=== PATIENT | female | born 1940 | race Caucasian/White ===

== ENCOUNTER 2020-09-21 13:26 | Outpatient (CLI) | payer BC, SELFPAY ==
--- NOTE | ~2020-09-21 | MM_ITS ---
EXAMINATION: MM screening oren BI w sage HISTORY: Screening mammogram TECHNIQUE: Craniocaudal and mediolateral oblique 3-D tomosynthesis images were obtained and synthetic 2-D images were generated. CAD analysis was submitted and interpreted. COMPARISON: 09/15/2019 bilateral digital screening mammogram 05/06/2017, 03/11/2016 bilateral diagnostic digital mammogram examinations BREAST PARENCHYMAL COMPOSITION: The breasts are heterogeneously dense, which may obscure small masses . FINDINGS: Multiple bilateral benign-appearing calcifications are noted. Surgical clips are noted on the left; history of prior bilateral partial mastectomy for breast cancer . There is no evidence of suspicious mass, calcification, or architectural distortion to suggest malign tri in either breast. There has been no suspicious interval change. IMPRESSION: 1. No mammographic evidence of malignancy. 2. Recommend routine screening mammography in one year. BI-RADS Category 2: Benign finding(s). Reviewed, dictated and finalized at location A. MUNITION OFFICER
== END 2020-09-21 13:27 | disposition home or self-care (01) ==
PROVIDERS: PCP Family Medicine; Visit Provider Family Medicine
DX: Z12.31 Encounter for screening mammogram for malignant neoplasm of breast (principal)
CPT/HCPCS: 77063; 77067

== ENCOUNTER → 2021-02-26 15:40 | Outpatient (CLI) | payer BC, SELFPAY ==
--- NOTE | ~2021-02-26 | XR_ITS ---
EXAMINATION: XR chest 2V DATE: 02/26/2021 15:50 INDICATION: Shortness of breath. TECHNIQUE: Frontal and lateral views of the chest were obtained. COMPARISON: Chest 2 views 11/18/2017, chest CT 03/16/2010 FINDINGS: Calcified pulmonary nodules and calcified hilar and mediastinal lymph nodes are consistent with old granulomatous disease. No pleural effusion or pneumothorax. The heart size is normal. Surgic al clips overlie right chest. IMPRESSION: 1. No acute cardiopulmonary disease. Reviewed, dictated and finalized at location B.
== END ==
PROVIDERS: PCP Physician Assistant; Visit Provider Physician Assistant
DX: R06.02 Shortness of breath (principal)
CPT/HCPCS: 71046

== ENCOUNTER → 2021-03-20 03:03 | Outpatient (CLI) | payer BC, SELFPAY ==
[2021-03-20 18:14] LABS: SARS-CoV-2 RNA PCR Negative
== END ==
PROVIDERS: PCP Family Medicine; Visit Provider Specialist
DX: Z01.812 Encounter for preprocedural laboratory examination (principal); Z20.822 Contact with and (suspected) exposure to COVID-19
CPT/HCPCS: C9803; U0003; U0005

== ENCOUNTER 2021-03-23 00:46 | Day surgery (SDC) | payer BC, SELFPAY ==
[2021-03-22 09:50] VITALS: BMI 22.1
[2021-03-23] VITALS (16 sets, daily range): BP systolic 118–142; BP diastolic 51–65; PULSE 70–77; RESP 16–20; TEMP 36.2–36.7; O2SAT 94–100; BMI 22.4
[2021-03-23 08:44] LABS: Basophils Absolute Auto 0.1 K/mm3 (0.0-0.1); Basophils Percent Auto 0.7 % (0.2-1.2); Eosinophils Absolute Auto 0.2 K/mm3 (0-0.3); Eosinophils Percent Auto 2.2 % (0-4.4); Hemoglobin 12.9 g/dL (12.0-15.0); Immature Granulocyte Absolute 0.02 K/mm3 (0.00-0.031); Immature Granulocyte Percent A 0.3 % (0-0.5); Lymphocytes Absolute Auto 2.99 K/mm3 (0.9-3.2); Lymphocytes Percent Auto 40.4 % (18.3-44.2); Mean Corpuscular HGB Conc 31.5 g/dl (32-36); Mean Corpuscular Hemoglobin 28.5 pg (26-34); Mean Corpuscular Volume 90.7 fl (80-100); Mean Platelet Volume 8.7 fl (7.4-10.4); Monocytes Absolute Auto 0.7 K/mm3 (0.1-0.6); Monocytes Percent Auto 9.2 % (2.6-8.5); Neutrophils Absolute Auto 3.5 K/mm3 (1.3-6.7); Neutrophils Percent Auto 47.2 % (45.5-73.1); Platelet Count Result 513 k/mm3 (150-375); Red Blood Count 4.52 M/mm3 (4.2-5.4); Red Cell Distribution Width 15.7 % (11.5-14.5); White Blood Count 7.4 K/mm3 (4.5-10.0)
[2021-03-23] MEDS: SODIUM CHLORIDE 0.9% IV 500 ML 100 ML IV CONT (08:45)
[2021-03-23 08:54] LABS: Anion Gap 11 mmol/L (8-16); Blood Urea Nitrogen 52 mg/dL (7-17); Carbon Dioxide 29 mmol/L (22-30); Chloride 104 mmol/L (98-107); Estimated CRCL calculation 23 ml/min; Estimated Glomerular Filt Rate 36; Glucose 113 mg/dL (65-105); Potassium 3.6 mmol/L (3.4-5.0); Sodium 144 mmol/L (137-145)
--- NOTE | 2021-03-23 09:44 | WPDMODSED ---
Moderate Sedation Note-Pt Data Patient Data Diagnosis: Exertional dyspnea abnormal stress test Present Complaint: this is an 80-year-old woman previously not known to have coronary disease who has been experiencing exertional dyspnea for 6-9 months. a nuclear stress test as an outpatient demonstrated fixed apical defect raising the possibility of coronary disease. Because of this and her dyspnea right and left heart catheterization has been recommended. Procedure to be performed/Plan: Right and left heart catheterization Allergies Allergy/AdvReac Type Severity Reaction Status Date / Time chlorpheniramine Allergy Severe Hives Verified 03/22/21 10:09 [From Aller-Chlor Decongestant] Home Medications Medication Instructions Recorded Confirmed Type aspirin 81 mg tablet,delayed 81 mg PO DAILY 09/11/20 03/23/21 History release cholecalciferol (vitamin D3) 25 25 mcg PO DAILY 09/11/20 03/23/21 History mcg (1,000 unit) tablet tamoxifen 20 mg tablet 20 mg PO QPM tablet 09/11/20 03/23/21 History bumetanide 1 mg tablet See Rx Instructions .ROUTE 10/16/20 03/23/21 Rx .COMPLEX #90 tablet celecoxib 200 mg capsule 200 mg PO QAM #90 cap 10/16/20 03/23/21 Rx atorvastatin 10 mg tablet See Rx Instructions .ROUTE 10/23/20 03/23/21 Rx .COMPLEX #90 tablet venlafaxine 75 mg capsule,extended See Rx Instructions .ROUTE 10/30/20 03/23/21 Rx release 24 hr .COMPLEX #270 cap levothyroxine 75 mcg tablet 75 mcg PO QAM #90 tablet 11/10/20 03/23/21 Rx amlodipine 10 mg tablet 10 mg PO QPM #90 tablet 11/20/20 03/23/21 Rx fenofibrate 160 mg tablet See Rx Instructions .ROUTE 11/28/20 03/23/21 Rx .COMPLEX #90 tablet pantoprazole 20 mg tablet,delayed See Rx Instructions .ROUTE 01/01/21 03/23/21 Rx release .COMPLEX #90 tablet triamterene 37.5 See Rx Instructions .ROUTE 01/09/21 03/23/21 Rx mg-hydrochlorothiazide 25 mg tablet .COMPLEX #90 tablet fluticasone fur. 100 mcg-umeclid 1 inh INHALATION Q24H #60 ea 03/01/21 03/23/21 Rx 62.5 mcg-vilant 25 mcg inhalat.powder fluticasone propionate 50 See Rx Instructions .ROUTE 03/08/21 03/23/21 Rx mcg/actuation nasal .COMPLEX #32 g spray,suspension Current Medications: Active Medications Sodium Chloride (Normal Saline Iv) 500 mls @ 100 mls/hr IV CONT .Q5H NATHAN Sedation/Anesthesia: No previous sedation/anesthesia problems (including family history). [facility] Past Medical History Medical History Essential (primary) hypertension Gastro-esophageal reflux disease without esophagitis Major depressive disorder, recurrent, mild Type 2 diabetes mellitus with hyperglycemia Surgical History Surgical History H/O bladder repair surgery (~1982) H/O lumpectomy (~2013) H/O: hysterectomy (~1982) History of appendectomy (~1954) History of knee replacement (~2006) History of knee replacement (~2002) History of lumpectomy (~2010) Family History Family History Mother Family history of lung cancer Hypertension Family history of kidney disease Family history of throat cancer Father Family history of lung cancer Family history of coronary artery disease Social History Social History Smoking status: Former smoker Tobacco type: cigarettes Smoking end date: 10/20/84 Alcohol intake: never Living arrangements: alone Gender identity (if verbalized by the patient): Female Sexual Orientation (if Verbalized by the Patient): Straight or Heterosexual Spiritual care concerns: No Mod Sed Physical Exam Physical Exam Pre Procedural Exam: Normal: Appearance, Neck, Throat, Airway, Lungs, Heart Size, Heart Rate, Heart Rhythm, Neuro Exam and Extremities Hours since solid foods: 12 Hours since liquid intake: 12 Internal Medicine - PN: Obj Da Vital
--- NOTE | 2021-03-23 10:43 | WPDCARDPROC ---
Cardiac Cath Procedure Note Date of procedure:: 03/23/21 Performing physician:: Charly Holley MD Indication:: Exertional dyspnea, fixed apical defect on nuclear stress testing Brief clinical history:: this is an 80-year-old woman reporting symptoms of exertional shortness of breath. She is not known to have coronary artery disease previous to this. a Lexiscan nuclear stress test showed a fixed apical defect prompting recommendation for catheterization. Procedure Procedure performed:: Right and left heart catheterization Sedation/Medication given:: fentanyl 25 mg Versed 2 mg case start time 10:04 a.m. case end time 10:35 a.m. sedation provided by Val Gil RN, trained observer Access site:: right femoral artery, right femoral vein Estimated blood loss:: 10-15 cc Procedure note:: patient was brought to the cardiac catheterization lab in the postabsorptive state for the right femoral triangle was prepared and draped in the usual sterile fashion. Anesthesia was provided with 1% lidocaine infiltrated locally. Using the modified Seldinger technique a 7 Macedonian sheath was placed into the femoral vein and a 5 Macedonian sheath into the femoral artery. Following this right heart cathetrization was performed using a balloon tip Tyronza-Kyler catheter demonstrating right-sided pressures, measuring thermodilution cardiac outputs and AV O2 difference. The Tyronza-Kyler catheter was then removed. I then used a 5 Macedonian angled pigtail catheter to measure left-sided hemodynamics and to inject left ventriculography in the PAGAN projection. The pigtail catheter was then withdrawn the left coronary artery was engaged and injected using a standard 5 Macedonian FL4 catheter the right coronary artery was engaged and injected using standard 5 Macedonian JR4 catheter. The cine angiograms were then reviewed the case terminated. An angiogram was done of the femoral artery through the sheath after which I elected to have the sheath removed with direct manual pressure. Procedure was well tolerated there were no apparent complications there was no groin hematoma upon leaving the labor relations consultant. Findings:: Hemodynamics: Right atrial pressure of 5 mm Hg, right ventricle 38 over 2 end-diastolic pressure 6, Pulmonary artery 42 over 17. Mean pulmonary wedge pressure is 8. The thermodilution cardiac output is 5 liters/minute giving an index of 3.1. The Monisha cardiac output is identical. left ventricle: The LV is normal in size there is hypo contractility in the apical segment of the LV. The remainder contracts very well the global ejection fraction I would visually estimated to be 55%. The left main coronary artery is moderate caliber and nicely patent. The left anterior descending is a medium caliber artery which terminates before the cardiac apex. It is free of disease. The diagonal branch is essentially this same size as the LAD itself. This moderate-sized diagonal branch has a modest stenosis in the proximal 3rd of its course of about 50%. The remainder of the diagonal looks normal. The circumflex is a medium caliber vessel giving rise to marginal branches and appears to be smooth and angiographically normal. The right coronary artery is moderate to large in caliber and dominant to the posterior circulation the RCA is smooth and angiographically normal in appearance. Conclusion:: 1. Angiographically mild single-vessel coronary disease with about 50-60% stenosis seen in the diagonal branch of the LAD. 2. Apical hypokinesia overall normal left ventricular ejection fraction 3. at this time medical therapy for this angiographically modest coronary disease will be recommended. 4. slightly elevated pulmonary artery systolic pressure with normal left ventricular filling pressure Charly Holley MD FACC
[2021-03-23] MEDS: SODIUM CHLORIDE 0.9% IV 1,000 ML 125 ML IV CONT (11:00)
--- NOTE | 2021-03-23 16:45 | SUR.PHASEII ---
REVIEWED ALL DISCHARGE INSTRUCTIONS W/ PT. QUESTIONS ANSWERED. VOICED UNDERSTANDING OF ALL. DISCHARGED HOME, OUT VIA WC TO FRIEND'S WAITING CAR, WITH ALL PERSONAL BELONGINGS AND DISCHARGE PACKET. STEADY GAIT. VOICES NO C/O. NO DISTRESS NOTED.
== END 2021-03-23 16:45 | disposition home or self-care (01) ==
PROVIDERS: PCP Family Medicine; Visit Provider Specialist
PROC: 4A023N8 Measurement of Cardiac Sampling and Pressure, Bilateral, Percutaneous Approach (ICD-10-PCS; CPT 93453; principal; 2021-03-23 10:00)
DX: I25.10 Atherosclerotic heart disease of native coronary artery without angina pectoris (principal); R94.39 Abnormal result of other cardiovascular function study; R06.09 Other forms of dyspnea; R07.9 Chest pain, unspecified; I10 Essential (primary) hypertension; E11.9 Type 2 diabetes mellitus without complications; E78.00 Pure hypercholesterolemia, unspecified; K21.9 Gastro-esophageal reflux disease without esophagitis; F33.0 Major depressive disorder, recurrent, mild; Z87.891 Personal history of nicotine dependence; Z79.82 Long term (current) use of aspirin; Z79.810 Long term (current) use of selective estrogen receptor modulators (SERMs); Z85.3 Personal history of malignant neoplasm of breast
CPT/HCPCS: 36415; 80048; 85025; 93460; C1887; C1894; J0461; J1644; J2250; J3010; J7040

== ENCOUNTER 2021-11-01 15:26 | Outpatient (CLI) | payer BC, SELFPAY ==
--- NOTE | ~2021-11-01 | MM_ITS ---
EXAMINATION: MM screening oren BI w sage HISTORY: Screening TECHNIQUE: Craniocaudal and mediolateral oblique 3-D tomosynthesis images were obtained and synthetic 2-D images were generated. CAD analysis was submitted and interpreted. COMPARISON: Comparison to multiple prior studies sequentially, with oldest reviewed study dated 08/20. BREAST PARENCHYMAL COMPOSITION: The breasts are heterogenously dense, which may obscure small masses FINDINGS: The left breast is stable without evidence for malignancy. There is suggestion of new archi tectural distortion in the upper central aspect of the right breast. IMPRESSION: 1. New focal architectural distortion of the right breast. 2. Additional mammographic views and possible breast ultrasound are recommended. BI-RADS Category 0: Incomplete: Needs additional imaging evaluation. Reviewed, dictated and finalized at location A. UND SALES MANAGER IMPRESSION: 1. New focal architectural distortion of the right breast. 2. Additional mammographic views and possible breast ultrasound are recommended . BI-RADS Category 0: Incomplete: Needs additional imaging evaluation.
== END 2021-11-01 15:27 | disposition home or self-care (01) ==
PROVIDERS: PCP Family Medicine; Visit Provider Family Medicine
DX: Z12.31 Encounter for screening mammogram for malignant neoplasm of breast (principal); R92.8 Other abnormal and inconclusive findings on diagnostic imaging of breast
CPT/HCPCS: 77063; 77067

== ENCOUNTER 2021-11-20 12:52 | Outpatient (CLI) | payer BC, SELFPAY ==
--- NOTE | ~2021-11-20 | MMUS_ITS ---
EXAMINATION: MM diagnostic oren RT w sage, US breast RT limited HISTORY: Follow-up right breast mass TECHNIQUE: Additional 3-D tomosynthesis images of the right breast were performed and synthetic 2-D i mages were generated. CAD analysis was submitted and interpreted. High resolution right breast ultras ound was performed. COMPARISON: Comparison to multiple prior studies sequentially, with oldest reviewed study dated 03/07. BREAST PARENCHYMAL COMPOSITION: Breast composed of scattered areas of fibroglandular density FINDINGS: MAMMOGRAPHIC FINDINGS: There is distortion of the right breast in the periareolar region, consistent with previous surgery. No new masses, calcifications or architectural distortion. There are benign calcifications. ULTRASOUND: Limited right breast ultrasound: At 9:00 in the subareolar location there is a 4 mm cyst. No suspicio us masses to suggest malignancy. IMPRESSION: 1. No evidence for malignancy in the right breast. Benign findings. 2. Routine yearly screening mammogram and regular clinical breast examination are recommended. BI-RADS Category 2: Benign finding(s). Reviewed, dictated and finalized at location A. ECTIONAL SUPERVISOR IMPRESSION: 1. No evidence for malignancy in the right breast. Benign findings. 2. Routine yearly screening mammogram and regular clinical breast examination a re recommended. BI-RADS Category 2: Benign finding(s).
== END 2021-11-20 12:53 | disposition home or self-care (01) ==
LOC: ANHIMG 12:53
PROVIDERS: PCP Family Medicine; Visit Provider Family Medicine
DX: R92.8 Other abnormal and inconclusive findings on diagnostic imaging of breast (principal)
CPT/HCPCS: 76642; 77061; 77065; G0279

== ENCOUNTER 2022-10-17 15:37 | Outpatient (CLI) | payer BC, SELFPAY ==
--- NOTE | ~2022-10-17 | XR_ITS ---
EXAMINATION: XR lumbar spine 2-3V DATE: 10/17/2022 16:05 INDICATION: Right leg pain. TECHNIQUE: 3 views of lumbar spine were obtained. COMPARISON: Lumbar spine radiographs 08/29/2009 FINDINGS: There is 32 degrees levoscoliosis of lumbar spine. There is 4 mm retrolisthesis of L2 on L3 . Vertebral body heights are normal. There is severely decreased disc height from L1-L2 through L3-L4 , mildly decreased disc height at L4-L5, and severely decreased disc height at L5-S1 with endplate re modeling. There is multilevel facet joint osteoarthritis. IMPRESSION: 1. Severe lumbar spondylosis. 2. Lumbar levoscoliosis. Reviewed, dictated and finalized at location A. ERMAN
--- NOTE | ~2022-10-17 | XR_ITS ---
EXAMINATION: XR hip RT min 3V w AP pelvis DATE: 10/17/2022 16:05 INDICATION: Right leg pain. TECHNIQUE: An anteroposterior view of the pelvis and 3 views of right hip were obtained. COMPARISON: Right hip radiographs 09/30/2013 FINDINGS: There is lumbar levoscoliosis and severe spondylosis. No fracture. There is moderate osteoa rthritis of the hips. IMPRESSION: 1. Moderate osteoarthritis of the hips. Reviewed, dictated and finalized at location A. OLL TAX SPECIALIST
== END 2022-10-17 15:38 | disposition home or self-care (01) ==
PROVIDERS: PCP Family Medicine; Visit Provider Physician Assistant
DX: M79.604 Pain in right leg (principal); M43.06 Spondylolysis, lumbar region; M41.86 Other forms of scoliosis, lumbar region; M16.0 Bilateral primary osteoarthritis of hip
CPT/HCPCS: 72100; 73502

== ENCOUNTER 2023-07-16 09:44 | Outpatient (CLI) | payer BC, SELFPAY ==
--- NOTE | ~2023-07-16 | MM_ITS ---
EXAMINATION: MM screening oren BI w sage HISTORY: Screening mammogram TECHNIQUE: Craniocaudal and mediolateral oblique 3-D tomosynthesis images were obtained and synthetic 2-D images were generated. CAD analysis was submitted and interpreted. COMPARISON: November 20, 2021 diagnostic right mammogram and limited right breast ultrasound BREAST PARENCHYMAL COMPOSITION: The breasts are heterogeneously dense, which may obscure small masses . FINDINGS: Stable postoperative changes of both breasts; history of bilateral breast malignancies and partial mastectomies.. Scattered bilateral benign calcifications. There is no evidence of suspicious mass, calcification, or architectural distortion to suggest malig sabrina in either breast. There has been no suspicious interval change. IMPRESSION: 1. Status post bilateral partial mastectomies for breast cancer. No mammographic evidence of malignan cy. 2. Recommend routine screening mammography in one year. BI-RADS Category 2: Benign finding(s). Reviewed, dictated and finalized at location A. IMPRESSION: 1. Status post bilateral partial mastectomies for breast cancer. No mammographi c evidence of malignancy. 2. Recommend routine screening mammography in one year. BI-RADS Category 2: Benign finding(s).
== END 2023-07-16 09:45 | disposition home or self-care (01) ==
LOC: ANHIMG 09:47
PROVIDERS: PCP Family Medicine; Visit Provider Family Medicine
DX: Z12.31 Encounter for screening mammogram for malignant neoplasm of breast (principal)
CPT/HCPCS: 77063; 77067

== ENCOUNTER 2023-08-24 10:56 | Emergency (ER) | payer BC, SELFPAY ==
--- NOTE | ~2023-08-24 | CT_ITS ---
EXAMINATION: CT brain wo con INDICATION: Head injury COMPARISON: 10/04/2010 TECHNIQUE: Standard unenhanced head CT. The dose-length product (DLP) was 529.67 mGy-cm. The mA was a djusted according to patient size. Iterative reconstruction technique was employed. FINDINGS: No acute intraparenchymal hemorrhage. No evidence of mass lesion. No evidence of acute infa rction. There is mild periventricular and subcortical hypodensity probably related to small vessel is chemic disease. There is mild prominence of the sulci and ventricles related to cerebral atrophy. Int racranial calcified cerebral atherosclerosis is noted. No extra-axial collections. No mass effect or midline shift. The orbits and soft tissues are unremarkable. There is mild mucosal thickening of the paranasal sinuses. IMPRESSION: 1. No acute intracranial abnormality. 2. Age related findings. Reviewed, dictated and finalized at location F. HER ADVISOR
--- NOTE | ~2023-08-24 | CT_ITS ---
EXAMINATION: CT facial bones wo con DATE: 08/24/2023 13:28 INDICATION: Head injury and facial pain TECHNIQUE: Computed tomography (CT) of the facial bones and maxillofacial region was performed withou t intravenous contrast. The dose-length product (DLP) was 238.00 mGy-cm. Automated exposure control a nd iterative reconstruction technique were employed. COMPARISON: None. FINDINGS: There is a nondisplaced fracture involving the anterior process of the maxilla. No addition al facial fracture is identified. The globes and orbits are normal. There is near complete opacificat ion of the left maxillary sinus. There is severe cervical spondylosis. IMPRESSION: 1. Acute anterior process fracture of the maxilla. Reviewed, dictated and finalized at location F. TRICAL PROSPECTING OPERATOR
--- NOTE | ~2023-08-24 | CT_ITS ---
EXAMINATION: CT cervical spine wo con DATE: 08/24/2023 12:11 INDICATION: Head injury TECHNIQUE: Computed tomography (CT) of the cervical spine was performed without intravenous contrast. The dose-length product (DLP) was 106.84 mGy-cm. Automated exposure control and iterative reconstruc tion technique were employed. COMPARISON: None FINDINGS: There are 2 mm anterolisthesis of C3 on C4 and C7 on T1. There is severe loss of interverte bral disc space height in the cervical and visualized upper thoracic spine. There is no fracture. The vertebral body heights are maintained. There is multilevel severe facet and uncovertebral joint oste oarthritis. There is inflammatory pannus surrounding the tip of the odontoid process. There is mild b ronchial wall thickening of the visualized lung apices IMPRESSION: 1. Severe cervical and upper thoracic spondylosis without acute findings. Reviewed, dictated and finalized at location F. E MILLER
[2023-08-24 11:19] VITALS: BP 142/84; PULSE 84; RESP 16; TEMP 36.4; O2SAT 96
[2023-08-24] MEDS: ACETAMINOPHEN 500 MG TABLET 1000 MG PO (13:15)
--- NOTE | 2023-08-24 13:20 | ED.GENADULT ---
HPI - General Adult General Chief complaint: Wound/Laceration Stated complaint: fall- injury to forehead Time Seen by Provider: 08/24/23 11:34 Source: patient Mode of arrival: ambulatory Limitations: no limitations History of Present Illness HPI narrative: Patient is an 83-year-old female who presents to the ED with report of a fall with head injury. Patient reports she was walking into [facility] today when she tripped over a curb on the sidewalk and fell forward. She did hit her head on the ground. Denied LOC. She sustained a laceration to her left eyebrow, which was bandaged by a nurse at [facility]. She also had an epistaxis after the fall which has since resolved. Patient complains of pain to her head and neck, denies extremity pain, chest pain, difficulty breathing, dizziness, lightheadedness, vision changes, nausea, vomiting. No prodromal symptoms prior to the fall. Patient is not on any blood thinners. Tetanus up-to-date. Related Data Home Medications Medication Instructions Recorded Confirmed aspirin 81 mg tablet,delayed 81 mg PO DAILY 09/11/20 05/13/23 release (Adult Low Dose Aspirin) cholecalciferol (vitamin D3) 25 25 mcg PO DAILY 09/11/20 05/13/23 mcg (1,000 unit) tablet multivitamin with iron (Daily 1 tablet PO DAILY 12/27/22 05/13/23 Multiple Vitamins with Iron tablet) vitamin B complex 1 cap PO DAILY 12/27/22 05/13/23 venlafaxine 75 mg capsule,extended 225 mg PO DAILY 02/13/23 05/13/23 release 24 hr Allergies Allergy/AdvReac Type Severity Reaction Status Date / Time chlorpheniramine Allergy Severe Hives Verified 08/24/23 11:21 [From Aller-Chlor Decongestant] Review of Systems Review of Systems: CONSTITUTIONAL: Denies fever, chills, or sweats. EYES: Denies visual changes. ENT: See HPI. CARDIOVASCULAR: Denies chest pain. RESPIRATORY: Denies dyspnea. GASTROINTESTINAL: Denies abdominal pain, nausea, vomiting. SKIN: See HPI. MUSCULOSKELETAL: See HPI. NEUROLOGIC: See HPI. All systems reviewed & are unremarkable except as noted in HPI and below PMFSH Past Medical History Medical History Back Pain Chest pain Chronic kidney disease, stage 3 (moderate) Chronic right hip pain Coronary artery disease Degenerative joint disease (DJD) of hip Depression Dizziness Essential (primary) hypertension Gastro-esophageal reflux disease without esophagitis Hypercalcemia Hypothyroidism, unspecified Leg pain, right Light headedness Lumbar spondylosis Major depressive disorder, recurrent, mild Malignant neoplasm of unspecified site of right female breast Mixed hyperlipidemia Obstructive sleep apnea Scoliosis Sinus infection Type 2 diabetes mellitus with hyperglycemia Unsteady gait Vertigo Surgical History Surgical History H/O bladder repair surgery (~1982) H/O lumpectomy (~2013) H/O: hysterectomy (~1982) History of appendectomy (~1954) History of cardiac cath (~03/2021) History of knee replacement (~2006) History of knee replacement (~2002) History of lumpectomy (~2010) Family History Family History Mother Family history of lung cancer Hypertension Family history of kidney disease Family history of throat cancer Father Family history of lung cancer Family history of coronary artery disease Social History Social History Smoking status: Former smoker Tobacco type: cigarettes Smoking end date: 10/20/84 Alcohol intake: never Lack of Transportation: No Lack of Food: Never True Current Housing: I Have Housing Concerned About Future Housing: No Difficulty Paying Gas/Electric Bills: No Currently Unemployed: No Education: High School Diploma/GED Difficulty w/ Childcare or Family Care: No Living arrangements: alone [place]
[2023-08-24 15:20] VITALS: BP 140/80; PULSE 80; RESP 16; O2SAT 98
== END 2023-08-24 15:21 | disposition home or self-care (01) ==
PROVIDERS: Emergency Provider Physician Assistant; PCP Family Medicine
DX: S02.401A Maxillary fracture, unspecified side, initial encounter for closed fracture (principal); S01.112A Laceration without foreign body of left eyelid and periocular area, initial encounter; I12.9 Hypertensive chronic kidney disease with stage 1 through stage 4 chronic kidney disease, or unspecified chronic kidney disease; E11.22 Type 2 diabetes mellitus with diabetic chronic kidney disease; N18.30 Chronic kidney disease, stage 3 unspecified; E03.9 Hypothyroidism, unspecified; E78.2 Mixed hyperlipidemia; Z87.891 Personal history of nicotine dependence; W01.0XXA Fall on same level from slipping, tripping and stumbling without subsequent striking against object, initial encounter; Y92.22 Religious institution as the place of occurrence of the external cause
CPT/HCPCS: 70450; 70486; 72125; 99284; A9270

== ENCOUNTER 2023-12-22 11:32 | Outpatient (CLI) | payer BC, SELFPAY ==
[2023-12-22 19:17] LABS: Alanine Aminotransferase 20 U/L (6-35); Albumin Level 3.9 g/dL (3.5-5.1); Alkaline Phosphatase 64 U/L (38-126); Anion Gap 9 mmol/L (8-16); Aspartate Amino Transferase 36 U/L (14-36); Bilirubin,Total 0.4 mg/dL (0.2-1.3); Blood Urea Nitrogen 27 mg/dL (7-17); Calcium 10.2 mg/dL (8.4-10.2); Carbon Dioxide 31 mmol/L (22-30); Chloride 100 mmol/L (98-107); Estimated Glomerular Filt Rate 53; Glucose 111 mg/dL (65-110); Potassium 2.9 mmol/L (3.4-5.0); Sodium 140 mmol/L (137-145)
[2023-12-22 19:31] LABS: Free T4 Free Thyroxine 1.35 ng/mL (0.78-2.19)
[2023-12-22 19:45] LABS: Total Triiodothyronine (T3) 0.85 NG/ML (0.97-1.69)
[2023-12-22 21:38] LABS: Hemoglobin A1C 6.3 % (<5.7)
== END 2023-12-22 11:33 | disposition home or self-care (01) ==
LOC: ANHGOSHLAB 11:34
PROVIDERS: PCP Family Medicine; Visit Provider Emergency Medicine
DX: E03.9 Hypothyroidism, unspecified (principal); E11.65 Type 2 diabetes mellitus with hyperglycemia; N18.30 Chronic kidney disease, stage 3 unspecified
CPT/HCPCS: 36415; 80053; 83036; 84439; 84443; 84480

== ENCOUNTER → 2023-12-22 11:42 | Outpatient (CLI) | payer BC, SELFPAY ==
--- NOTE | ~2023-12-22 | XR_ITS ---
EXAMINATION: XR shoulder RT min 2V DATE: 12/22/2023 12:01 INDICATION: Memory osteoarthritis at the right shoulder TECHNIQUE: AP internally and externally rotated, AP oblique externally rotated and transscapular Y vi ews of the right shoulder were obtained. COMPARISON: None FINDINGS: Normal alignment. No fracture.Severe osteoarthritis at the right glenohumeral joint. Mild osteoarthr itis at the acromioclavicular joint. There are several calcific density projecting over the soft tiss ues overlying the superolateral aspect of the humeral head suspicious for small amount of calcific te ndinitis. There is cystic change along the greater tuberosity which can be seen in setting of rotator cuff disease. There is a large portion of the lungs are clear. Surgical clips projecting over the ri ght axilla on the Grashey view. IMPRESSION: 1. 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 2. Suggestion of subtle right rotator cuff calcific tendinitis with cystic change at the greater tube rosity which can be seen with chronic rotator cuff disease. Reviewed, dictated and finalized at location A. ING PILOT IMPRESSION: 1. 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 2. Suggestion of subtle right rotator cuff calcific tendinitis with cystic moss ge at the greater tuberosity which can be seen with chronic rotator cuff diseas e.
== END ==
PROVIDERS: PCP Family Medicine; Visit Provider Emergency Medicine
DX: M19.011 Primary osteoarthritis, right shoulder (principal)
CPT/HCPCS: 73030

== ENCOUNTER 2024-01-12 13:28 | Outpatient (CLI) | payer BC, SELFPAY ==
[2024-01-12 18:16] LABS: Alanine Aminotransferase 22 U/L (6-35); Albumin Level 4.1 g/dL (3.5-5.1); Alkaline Phosphatase 63 U/L (38-126); Anion Gap 5 mmol/L (8-16); Aspartate Amino Transferase 41 U/L (14-36); Bilirubin,Total 0.5 mg/dL (0.2-1.3); Blood Urea Nitrogen 35 mg/dL (7-17); Calcium 10.7 mg/dL (8.4-10.2); Carbon Dioxide 33 mmol/L (22-30); Chloride 102 mmol/L (98-107); Estimated Glomerular Filt Rate 53; Glucose 111 mg/dL (65-110); Potassium 3.4 mmol/L (3.4-5.0); Sodium 140 mmol/L (137-145)
== END 2024-01-12 13:29 | disposition home or self-care (01) ==
LOC: ANHGOSHLAB 13:30
PROVIDERS: PCP Family Medicine; Visit Provider Family Medicine
DX: E03.9 Hypothyroidism, unspecified (principal); Z13.228 Encounter for screening for other metabolic disorders; E87.6 Hypokalemia
CPT/HCPCS: 36415; 80053; 84443

== ENCOUNTER 2024-01-27 11:00 | Outpatient (RCR) | payer BC, SELFPAY ==
--- NOTE | 2023-12-30 14:44 | OPREHPOC ---
Outpatient Therapy Plan of Care This is a Multidisciplinary Plan of Care that may contain components documented by all disciplines (PT, OT, and ST.) PT Problem 1 PT Problem #1 Knowledge Deficit PT Goal 1 Goal Pt to be IND with issued HEP. Target Visit 8 PT Problem 2 PT Problem #2 Pain PT Goal 1 Goal Pt to report back pain no greater than 3/10 in the last week. Target Visit 8 PT Goal 2 Goal Pt to report 75% improvement in overall symptoms. Target Visit 8 PT Problem 3 PT Problem #3 Impaired Sensation PT Goal 1 Goal Pt to decline radicular symptoms in the last week. Target Visit 8 PT Problem 4 PT Problem #4 Impaired Functional Mobil PT Goal 1 Goal Pt to report no more than 10% disability on the Oswestry. Target Visit 8
--- NOTE | 2023-12-30 14:44 | PTOPEVAL1 ---
Assessment and note entered by Shashi Camarillo, PT, DPT Evaluation Information Assessment Status Evaluation Diagnosis lumbar radiculopathy Subjective Information Pt reports chronic history of low back pain worsening in the last few months, she states it is now affecting that way she walks as she has pain going down the R leg. She states her pain radiated down the side of her thigh but never goes beyond the knees. Declines any spinal surgeries. Her pain is worse in the morning, but gets better throughout the day. States she would like to improve her walking. Reported Pain Level Pain Score 2: Self Report Assessment PT Clinical Summary Tessa presents to therapy today for her initial evaluation with a diagnosis of lumbar radiculopathy. She demonstrates decreased active lumbar motions limited by pain reports on the R side. There are palpable muscle spasms throughout the thoracic and lumbar paraspinals as well as tenderness to palpation in her vish piriformis L>R. She also demonstrates decreased hip and core strength. Skilled therapy services are indicated to improve mobility and stability deficits, to manage pain, and to improve functional mobility. Plan of Care Interventions Electrical Stimulation,Gait Training,Hot Pack/Cold Pack,Manual Therapy,Neuro Re-education,Patient/ Caregiver Educati,Therapeutic Activities, Therapeutic Exercise PT Services Indicated Yes Treatment Frequency and 1x/wk for 6 visits Duration These treatments will address the objective and functional deficits as defined above. The patient will be advanced safely and appropriately in order for the patient to progress towards his/her prior level of function. Additional exercises will be introduced and as well as a comprehensive home exercise program upon discharge, if needed, ?to ensure carryover of functional gains achieved in the clinic. This treatment plan has been reviewed and agreement upon by the patient.
--- NOTE | 2024-01-07 14:21 | PCPTNOTE ---
Patient no showed to appointment this date. Called and left voicemail.
--- NOTE | 2024-01-27 11:51 | PTOPDC ---
Assessment and note entered by Shashi Camarillo, PT, DPT Evaluation Information Assessment Status Discharge Diagnosis lumbar radiculopathy Subjective Information Pt states right now her back seems to be doing better. She states she knows she just has to keep at it. She feels like she is walking a little but better than when she started therapy. She continues to have high levels of pain in the morning, about 8/10, and down to a 2-3/10 at worst once she gets moving. Reported Pain Level Pain Score 0: Self Report Assessment PT Clinical Summary Tessa presents to therapy today for her progress report following 5 visits of skilled therapy to treat her diagnosis of lumbar radiculopathy. She demonstrates improved active lumbar ROM, improved hip strength, improved stability, and progressing body awareness. She reports good compliance with her HEP and good progress towards her goals. D/t her co-pay, pt would like to continue with her HEP IND since she is progressing well. Plan of Care PT Services Indicated No
== END 2024-01-27 14:25 | disposition home or self-care (01) ==
LOC: ANHGOSHPT 11:00
PROVIDERS: PCP Family Medicine; Visit Provider Emergency Medicine
DX: M19.011 Primary osteoarthritis, right shoulder (principal); M47.816 Spondylosis without myelopathy or radiculopathy, lumbar region
CPT/HCPCS: 97014; 97110; 97112; 97140; 97161; 97530; 99199; G0283

== ENCOUNTER 2024-07-23 10:56 | Outpatient (CLI) | payer BC, SELFPAY ==
--- NOTE | ~2024-07-23 | XR_ITS ---
Clinical Indication: Shortness of breath PA and lateral views of the chest: Comparison: 02/26/2021 Findings: The lungs are clear, without evidence of focal consolidation or pleural effusion. Cardiome diastinal silhouette is within normal limits. Bones and soft tissues are unremarkable. Impression: Clear lungs Reviewed, dictated and finalized at location . Impression: Clear lungs
== END 2024-07-23 10:57 | disposition home or self-care (01) ==
LOC: GOSHIMG 10:57
PROVIDERS: PCP Family Medicine; Visit Provider Family Medicine
DX: R06.02 Shortness of breath (principal)
CPT/HCPCS: 71046

== ENCOUNTER 2024-07-23 11:15 | Outpatient (CLI) | payer BC, SELFPAY ==
[2024-07-23 16:14] LABS: Basophils Absolute Auto 0.1 K/mm3 (0.0-0.1); Basophils Percent Auto 1.6 % (0.2-1.2); Eosinophils Absolute Auto 0.4 K/mm3 (0-0.3); Hemoglobin 12.6 g/dL (12.0-15.0); Immature Granulocyte Absolute 0.02 K/mm3 (0.00-0.031); Immature Granulocyte Percent A 0.3 % (0-0.5); Lymphocytes Absolute Auto 2.49 K/mm3 (0.9-3.2); Lymphocytes Percent Auto 40.4 % (18.3-44.2); Mean Corpuscular HGB Conc 31.5 g/dl (32-36); Mean Corpuscular Hemoglobin 29.1 pg (26-34); Mean Corpuscular Volume 92.4 fl (80-100); Mean Platelet Volume 9.2 fl (7.4-10.4); Monocytes Absolute Auto 0.5 K/mm3 (0.1-0.6); Monocytes Percent Auto 8.3 % (2.6-8.5); Neutrophils Absolute Auto 2.7 K/mm3 (1.3-6.7); Neutrophils Percent Auto 43.4 % (45.5-73.1); Platelet Count Result 532 k/mm3 (150-375); Red Blood Count 4.33 M/mm3 (4.2-5.4); Red Cell Distribution Width 15.5 % (11.5-14.5); White Blood Count 6.2 K/mm3 (4.5-10.0)
[2024-07-23 16:33] LABS: Alanine Aminotransferase 19 U/L (6-35); Albumin Level 4.1 g/dL (3.5-5.1); Alkaline Phosphatase 60 U/L (38-126); Anion Gap 10 mmol/L (4-12); Aspartate Amino Transferase 30 U/L (14-36); Bilirubin,Total 0.5 mg/dL (0.2-1.3); Blood Urea Nitrogen 33 mg/dL (7-17); Carbon Dioxide 32 mmol/L (22-30); Chloride 100 mmol/L (98-107); Estimated Glomerular Filt Rate 47; Free T4 Free Thyroxine 1.28 ng/mL (0.78-2.19); Glucose 127 mg/dL (65-110); Potassium 3.3 mmol/L (3.4-5.0); Sodium 142 mmol/L (137-145)
[2024-07-23 17:01] LABS: Thyroid Stimulating Hormone 0.883 uIU/mL (0.465-4.680)
== END 2024-07-23 11:16 | disposition home or self-care (01) ==
LOC: ANHGOSHLAB 11:17
PROVIDERS: PCP Family Medicine; Visit Provider Family Medicine
DX: Z13.228 Encounter for screening for other metabolic disorders (principal); D50.9 Iron deficiency anemia, unspecified; R53.83 Other fatigue; E03.9 Hypothyroidism, unspecified
CPT/HCPCS: 36415; 80053; 82728; 84439; 84443; 85025

== ENCOUNTER 2024-09-27 12:45 | Emergency (ER) | payer BC, SELFPAY ==
--- NOTE | ~2024-09-27 | XR_ITS ---
EXAMINATION: XR chest 2V DATE: 09/27/2024 13:18 INDICATION: 4 days of cough and shortness of breath TECHNIQUE: PA and lateral views of the chest were obtained. COMPARISON: Chest radiograph dated 07/23/2024 FINDINGS: Status post right mastectomy and right axillary lymph node dissection with multiple surgical clips at the right axilla. There are additional surgical clips project over the left breast. Unchanged linear discoid atelectasis/scarring extending laterally from the right hilum. A few small calcite pulmonary nodules in the left mid and upper lung zones consistent with old granulomatous disease. There is mil d increased perihilar interstitial pattern with some bronchial wall thickening which could be due to bronchitis, reactive airway disease/asthma or mild pulmonary edema. No pleural effusion or pneumothor ax. Heart size is normal. Partially visualized lumbar levoscoliosis with severe spondylosis. There is additional severe spondylosis in the midthoracic spine. IMPRESSION: 1. Mild increased perihilar interstitial pattern with bronchial wall thickening which could be seen w ith bronchitis/reactive airway disease/asthma or mild pulmonary edema. Reviewed, dictated and finalized at location A. TAL ADVERTISING SPECIALIST IMPRESSION: 1. Mild increased perihilar interstitial pattern with bronchial wall thickening which could be seen with bronchitis/reactive airway disease/asthma or mild pul monary edema.
--- NOTE | 2024-09-27 12:46 | ED_ITS ---
HPI - URI/Sore Throat General Chief Complaint: Upper Respiratory Infection Stated Complaint: Trouble Breath/Cough Time Seen by Provider: 09/27/24 12:46 Source: patient Mode of arrival: ambulatory Limitations: no limitations History of Present Illness HPI Narrative: Tessa is an 84-year-old female patient presenting to the clinic today with complaints of difficulty breathing and cough times 2-3 days. She reports no fever chills. Is coughing up some yellow phlegm. States she is having shortness of breath with a productive cough at this time. No history of COPD but she is a former smoker. SpO2 initially 94% on room air but then increased to 98% on room air. Patient is able to speak in full sentences without gasping for air in between words. MD elicited complaint: sore throat and nasal congestion Related Data Home Medications Medication Instructions Recorded Confirmed aspirin 81 mg tablet,delayed 81 mg PO DAILY 09/11/20 09/27/24 release (Adult Low Dose Aspirin) cholecalciferol (vitamin D3) 25 25 mcg PO DAILY 09/11/20 09/27/24 mcg (1,000 unit) tablet multivitamin with iron (Daily 1 tablet PO DAILY 12/27/22 09/27/24 Multiple Vitamins with Iron tablet) vitamin B complex 1 cap PO DAILY 12/27/22 09/27/24 acetaminophen 650 mg 650 mg PO Q12H 02/20/24 09/27/24 tablet,extended release (Tylenol Arthritis Pain) ferrous sulfate 325 mg (65 mg 325 mg PO DAILY 02/20/24 09/27/24 iron) tablet vibegron 75 mg tablet (Gemtesa) 75 mg PO DAILY 02/20/24 09/27/24 Allergies Allergy/AdvReac Type Severity Reaction Status Date / Time chlorpheniramine Allergy Severe Hives Verified 09/27/24 12:47 [From Aller-Chlor Decongestant] Review of Systems Review of Systems: Pertinent positives per HPI. Patient denies any fever, chills, rash, headache, visual changes, dizziness, chest pain, palpitations, nausea, vomiting, diarrhea, constipation, abdominal pain, or any urinary issues. [facility] Past Medical History Medical History Back Pain Chest pain Chronic kidney disease, stage 3 (moderate) Chronic right hip pain Coronary artery disease Degenerative joint disease (DJD) of hip Depression Dizziness Essential (primary) hypertension Gastro-esophageal reflux disease without esophagitis Hypercalcemia Hypothyroidism, unspecified Leg pain, right Light headedness Lumbar spondylosis Major depressive disorder, recurrent, mild Malignant neoplasm of unspecified site of right female breast Mixed hyperlipidemia Obstructive sleep apnea Scoliosis Sinus infection Type 2 diabetes mellitus with hyperglycemia Unsteady gait Vertigo Surgical History Surgical History H/O bladder repair surgery (~1982) H/O lumpectomy (~2013) H/O: hysterectomy (~1982) History of appendectomy (~1954) History of cardiac cath (~03/2021) History of knee replacement (~2006) History of knee replacement (~2002) History of lumpectomy (~2010) Family History Family History Mother Family history of lung cancer Hypertension Family history of kidney disease Family history of throat cancer Father Family history of lung cancer Family history of coronary artery disease Social History Social History Smoking status: Former smoker Tobacco type: cigarettes Smoking end date: 10/20/84 Alcohol intake: never Lack of Transportation: No Lack of Food: Never True Current Housing: I Have Housing Concerned About Future Housing: No Difficulty Paying Gas/Electric Bills: No Currently Unemployed: No Education: High School Diploma/GED Difficulty w/ Childcare or Family Care: No Living arrangements: alone Gender identity (if verbalized by the patient): Female Sexual Orientation (if Verbalized by the Patient): Straight or Heterosexual Spiritual care concerns: No Comments At the time of my signature, I reviewed and agree with the nursing past medical, surgical, social, and family history. There is no relevant family history pertinent to the patient complaint. Exam Narrative: General: Well-developed, well nourished, in no apparent distress Head: Normocephalic, atraumatic Eyes: Pupils equally round and reactive to light bilaterally, EOM intact, sclera and conjunctive clear, no discharge, lids normal Ears: TMs intact and clear, ear canals clear, no drainage, grossly hearing normal. Nose: Nares patent, no discharge, no inflammation, no sinus tenderness. Mouth: Oral pharynx without lesions or masses, good dentition, MMM. Neck: Supple, trachea midline, no enlargement of anterior or posterior cervical nodes, no thyroid masses or goiter palpable. Cardio: Regular rate and rhythm, s1 and s2 normal, no murmur appreciated. Resp: Inspiratory rhonchi with expiratory wheezing, no rales or rubs Course Course Emergency Course: Portions of this record may have been created with voice recognition software. Level of Care: Express Care Visit Vital Signs Vital signs: Vital signs reviewed MDM - URI/Sore Throat MDM Narrative Medical decision making narrative: At the time of visit patient is resting comfortably on the exam table. Patient appears to be nontoxic. Labs: COVID testing was performed and negative in the clinic today. Diagnostics: Chest x-ray was performed and is negative for any sign of pneumonia. Does show likely bronchitis. Plan: I suspect patient has bronchitis. Prescription for prednisone, albuterol inhaler, and azithromycin was sent to the pharmacy. Supportive measures were discussed with the patient and they voiced understanding discharge instructions and agrees to treatment plan. Return precautions reviewed Differential Diagnosis Differential diagnosis: Likely upper respiratory infection, otitis media, sinusitis, viral infection, bronchitis, influenza, pharyngitis and other (COVID) Imaging Data Radiologist's impression: ITS Impressions Chest X-Ray 09/27/24 13:51 IMPRESSION: 1. Mild increased perihilar interstitial pattern with bronchial wall thickening which could be seen with bronchitis/reactive airway disease/asthma or mild pulmonary edema. Discharge Plan Discharge Clinical Impression: Bronchitis Patient Disposition: Home, Self-Care Condition: Stable Instructions: Antibiotic Form, Acute Bronchitis (ED) Additional Instructions: COVID testing was negative in the clinic today. Chest x-ray shows likely bronchitis-no sign of pneumonia. Take prescription medications only as prescribed-albuterol inhaler, prednisone, and azithromycin Increase fluids and stay well hydrated Tylenol/motrin for pain/fever Flonase and OTC antihistamines as directed Vicks vapor rub to open sinuses Sinus rinses for congestion Cepacol spray, cough drops, throat lozenges, warm tea with honey/lemon, gargle salt water to soothe throat BRAT diet for diarrhea Clear liquids x 24 hours then advance as tolerated for nausea/vomiting Go to the ED if you develop a worsening in your condition- high fever not controlled by Tylenol or Motrin, dehydration, weakness, lethargy, shortness of breath, or chest pain. Follow up with your PCP in 3-5 days if symptoms persist. Prescriptions: New azithromycin 250 mg tablet See Rx Instructions .ROUTE .COMPLEX Qty: 6 0RF Rx Instructions: For 250 mg dose pack: take 500 mg today (day 1), then 250 mg for 4 days (days 2-5) prednisone 20 mg tablet 40 mg PO DAILY 5 Days Qty: 10 0RF albuterol sulfate 90 mcg/actuation HFA aerosol inhaler 2 puff inhalation Q4-6H PRN (Reason: shortness of breath or wheezing) 30 Days Qty: 8.5 0RF No Action cholecalciferol (vitamin D3) 25 mcg (1,000 unit) tablet 25 mcg PO DAILY aspirin [Adult Low Dose Aspirin] 81 mg tablet,delayed release (DR/EC) 81 mg PO DAILY vitamin B complex Capsule 1 cap PO DAILY multivitamin with iron [Daily Multiple Vitamins/Iron] Tablet 1 tablet PO DAILY ferrous sulfate 325 mg (65 mg iron) tablet 325 mg PO DAILY acetaminophen [Tylenol Arthritis Pain] 650 mg tablet extended release 650 mg PO Q12H Gemtesa 75 mg tablet 75 mg PO DAILY fluticasone propionate 50 mcg/actuation spray,suspension See Rx Instructions .ROUTE .COMPLEX Qty: 32 3RF Dose Instruction: ADMINISTER 2 SPRAYS IN EACH NOSTRIL EVERY DAY Rx Instructions: ADMINISTER 2 SPRAYS IN EACH NOSTRIL EVERY DAY bumetanide 1 mg tablet 1 mg PO DAILY Qty: 90 1RF celecoxib 200 mg capsule 200 mg PO DAILY Qty: 90 1RF amlodipine 5 mg tablet 5 mg PO DAILY Qty: 90 1RF Stiolto Respimat 2.5-2.5 mcg/actuation mist 2 puff inhalation DAILY Qty: 12 1RF atorvastatin 10 mg tablet 10 mg PO DAILY Qty: 90 1RF pantoprazole 20 mg tablet,delayed release (DR/EC) 20 mg PO DAILY Qty: 90 1RF venlafaxine 75 mg capsule,extended release 24hr 225 mg PO DAILY Qty: 270 1RF potassium chloride 10 mEq tablet extended release 10 meq PO DAILY Qty: 30 0RF levothyroxine [Euthyrox] 75 mcg tablet 75 mcg PO DAILY Qty: 90 1RF losartan-hydrochlorothiazide 50-12.5 mg tablet 2 tablet PO DAILY Qty: 180 1RF fenofibrate 160 mg tablet 160 mg PO DAILY Qty: 90 1RF Follow-up/Referrals: Rusty Squires DO [Primary Care Provider] - Time of Disposition: 13:59 Quality NIHSS Nursing Documentation ED NIHSS nursing documentation: reviewed/agree
[2024-09-27 12:54] VITALS: BP 82/69; PULSE 84; RESP 24; TEMP 36.9; O2SAT 96
[2024-09-27 13:15] VITALS: PULSE 84; RESP 20; O2SAT 96
[2024-09-27] MEDS: IPRATROPIUM 0.5 MG/ALBUTEROL SULFATE 2.5 MG AMPUL.NEB 3 ML INHALATION (13:18)
[2024-09-27 13:30] VITALS: PULSE 86; RESP 20; O2SAT 96
[2024-09-27 15:03] LABS: EDCOVIDSCREEN Negative (Negative)
== END 2024-09-27 14:02 | disposition home or self-care (01) ==
PROVIDERS: Emergency Provider Nurse Practitioner Family; PCP Family Medicine
DX: J40 Bronchitis, not specified as acute or chronic (principal); Z20.822 Contact with and (suspected) exposure to COVID-19; Z87.891 Personal history of nicotine dependence; I12.9 Hypertensive chronic kidney disease with stage 1 through stage 4 chronic kidney disease, or unspecified chronic kidney disease; E11.22 Type 2 diabetes mellitus with diabetic chronic kidney disease; N18.30 Chronic kidney disease, stage 3 unspecified; I25.10 Atherosclerotic heart disease of native coronary artery without angina pectoris; K21.9 Gastro-esophageal reflux disease without esophagitis; E03.9 Hypothyroidism, unspecified; E78.2 Mixed hyperlipidemia; Z79.82 Long term (current) use of aspirin; Z85.3 Personal history of malignant neoplasm of breast
CPT/HCPCS: 71046; 87426; 94640; 99213; G0463

== ENCOUNTER 2025-03-15 15:33 | Outpatient (CLI) | payer BC, SELFPAY ==
--- NOTE | ~2025-03-15 | XR_ITS ---
CHEST RADIOGRAPH, PA AND LATERAL CLINICAL HISTORY: R06.02 - Shortness of breath . COMPARISON: 09/27/2024 TECHNIQUE: PA and lateral views of the chest. FINDINGS The cardiomediastinal silhouette is unremarkable. The lungs are clear. IMPRESSION: No focal infiltrate or effusion. Reviewed, dictated and finalized at location A.
== END 2025-03-15 15:34 | disposition home or self-care (01) ==
PROVIDERS: PCP Nurse Practitioner; Visit Provider Nurse Practitioner
DX: R06.02 Shortness of breath (principal)
CPT/HCPCS: 71046

== ENCOUNTER 2025-03-16 11:00 | Outpatient (CLI) | payer BC, SELFPAY ==
--- NOTE | ~2025-03-16 | CT_ITS ---
Clinical Indication: Shortness of breath CT Scan of the Chest with Contrast: Technique: Contiguous sections were acquired throughout the chest after intravenous administration of 100 cc of Omnipaque 350. Dose reduction technique was used on this scan by utilizing automated expos ure control and iterative reconstruction technique. The dose-length product (DLP) was 225.83 mGy-cm. Findings: There is no evidence of any significant mediastinal, hilar or axillary lymphadenopathy. There is no f illing defect in the pulmonary arterial tree to suggest pulmonary embolus. There is no evidence of ao rtic dissection or aneurysm. There is no evidence of pleural or pericardial effusion. There is subtle mosaic attenuation pattern of the lungs. There are focal areas of slightly more confl uent groundglass opacity in the right upper lobe. There are areas of peripheral probable chronic scar ring in the left upper lobe. Images through the upper abdomen reveal no abnormalities. Impression: No evidence of pulmonary embolus, aortic dissection, or aortic aneurysm. Subtle mosaic attenuation pattern in the lungs. Correlate for bronchiolitis, asthma, hypersensitivity pneumonitis, minimal pulmonary edema, or chronic interstitial disease. Reviewed, dictated and finalized at [facility]. Impression: No evidence of pulmonary embolus, aortic dissection, or aortic aneurysm. Subtle mosaic attenuation pattern in the lungs. Correlate for bronchiolitis, as thma, hypersensitivity pneumonitis, minimal pulmonary edema, or chronic interst itial disease.
--- OUTSIDE RECORDS SUMMARY | 2025-03-16 11:10 | XMS_ITS | Clinical Summary ---
Author Organization [facility] Address [address] [place] [address] Phone Care Team Providers Care Keno Terminal Operator Name Role Phone Amrita Fung ADJUN[employer] COMMUNICATIONS FACULTY MEMBER Unavailable [phone] Rusty Squires DO Primary Care Provider [phone] Allergies Active Allergy Reactions Criticality Noted Date Comments Esk-Wkbebrmbq-Khalegpjwcjum Unknown 04/27/20 18 Medications aspirin 81 mg tablet Take 1 tablet (81 mg total) by mouth daily Active amLODIPine (NORVASC) 10 mg tablet Take 1 tablet (10 mg total) by mouth daily Active vitamin B complex (B COMPLEX ORAL) Take by mouth. Active bumetanide (BUMEX) 1 mg tablet Take 1 tablet (1 mg total) by mouth daily Active atorvastatin (LIPITOR) 10 mg tablet Take 1 tablet (10 mg total) by mouth daily Active pantoprazole DR (PROTONIX) 20 mg EC tablet Take 1 tablet (20 mg total) by mouth daily Active triamterene-hyd roCHLOROthiazid e (MAXZIDE,DYAZID E) 37.5-25 mg per tablet/capsule Take 1 tablet/capsu le by mouth daily Active acetaminophen/d iphenhydramine (TYLENOL PM EXTRA STRENGTH ORAL) Take by mouth 2 (two) times a day Active venlafaxine (EFFEXOR) 75 mg tablet Take 1 tablet (75 mg total) by mouth 2 (two) times a day Take 2 tablets in the morning, and 1 tablet at night Active celecoxib (CeleBREX) 200 mg capsule 04/06/2018 Active fenofibrate (TRIGLIDE) 160 mg tablet 03/02/2018 Active MULTIVITAMIN ORAL Take by mouth Alive vitamin Active EUTHYROX 75 mcg tablet 09/09/2019 Active fluticasone propionate (FLONASE) 50 mcg/actuation nasal spray 03/08/2021 Active ferrous sulfate 325 mg (65 mg of elemental iron) tablet Take 1 tablet (325 mg total) by mouth daily Active cholecalciferol (VITAMIN D-3) 25 mcg (1,000 unit) tablet Take 1 tablet (1,000 Units total) by mouth daily Active nitroglycerin (NITROSTAT) 0.[address] 1 tablet (0.4 mg total) under the tongue every 5 (five) minutes as needed for chest pain May repeat dose q 5 min, up to 3 doses total 25 tablet 11 03/12/2021 Active Stiolto Respimat 2.5-2.5 mcg/actuation inhaler 12/28/2021 Active ascorbic acid (ascorbic acid with nimo hips) 500 mg tablet,chewable Acti ve losartan-hydroC HLOROthiazide (HYZAAR) 50-12.5 mg per tablet Take 2 tablets by mouth daily 05/03/2024 Active Active Problems Problem Noted Date Diagnosed Date Thrombocytosis 07/10/2023 Coronary artery disease invo lving [place] coronary artery of [place] heart without angina pectoris 04/15/2022 Pulmonary hypertension 04/15/2022 Hyperlipidemia LDL goal <100 03/12/2021 Essential hypertension 03/12/2021 Abnormal stress test 03/12/2021 Hypersomnolence 03/12/2021 ROMELIA (obstructive sleep apnea) 03/12/2021 SOLANO (dyspnea on exertion) 03/12/2021 Chest pain 03/12/2021 Malignant neoplasm of upper- outer quadrant of left breast in female, estrogen receptor positive 10/22/2018 Encounters Date Type Department Care Team Description 01/21/2025 10:45 AM CDT Office Visit [facility] [address] [place] [address] Octavio Valentin MD Coronary artery disease involving [place] coronary artery of [place] heart without angina pectoris (Primary Dx); Essential hypertension; Hyperlipidemia LDL goal <100; Pulmonary hypertension (HCC); ROMELIA (obstructive sleep apnea) from Last 3 Months Immunizations Immunization Administration Dates Next Due Influenza, Trivalent, High D ose, Split, Preservative Free, Intramuscular 06/16/2018 Influenza, Unspecified 08/15/2019,07/20/2017 Moderna SARS-CoV-2 Monovalent Vaccination (12+ Y RS) 01/10/2021,12/13/2020 Pneumococcal, Unspecified 07/20/2017 ZOSTER LIVE 07/20/2017 Surgical History Surgery Date Site/Laterality Comments COLONOSCOPY BREAST BIOPSY APPENDECTOMY CARDIAC CATHETERIZATION Medical History Medical History Date Comments Breast cancer (HCC) Hypertension Hyperlipidemia Thyroid disease Acid indigestion Cancer (HCC) Anxiety and depression Sleep apnea Gout Mild coronary artery disease 03/23/2021 Mild pulmonary hypertension (HCC) 03/23/2021 Family History Medical History Relation Name Comments Heart disease Father Lung cancer Father Other Mother Relation Name Status Comments Father (Age 79) Mother (Age 83) Sister (Age 93) Social History Tobacco Use Types Packs/Day Years Used Date Smoking Tobacco: Former Cigarettes 0.3 10 1 988 - 1997 Smokeless Tobacco: Never Tobacco Cessation:Counseling Given: Not Answered Comments:smoked on and off for 10 years Alcohol Use Standard Drinks/Week Comments No 0 (1 standard drink = 0.6 oz pur e alcohol) AUDIT-C Answer Date Recorded Q1: How often do you have a drink containing alc ohol? 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 Gender Identity Not on file Sexual Orientation Not on file Obstetrics History Last Filed Vital Signs Vital Sign Reading Time Taken Comments Blood Pressure 128/54 01/21/2025 10:55 AM CDT Pulse 76 01/21/2025 10:55 AM CDT Temperature 36.6 C (97.9 F) 07/15/2023 1:43 PM CDT Respiratory Rate 17 05/20/2023 3:18 PM CDT Oxygen Saturation 99% 01/21/2025 10:55 AM CDT Inhaled Oxygen Concentration - - Weight 57.2 kg (126 lb) 01/21/2025 10:55 AM CDT Height 160 cm (5' 3) 01/21/2025 10:55 AM CDT Body Mass Index 22.32 01/21/2025 10:55 AM CDT Plan of Treatment Health Maintenance Due Date Last Done Comments Depression Screening 1940 Fall Risk Assessment 1940 Osteoporosis Screening-Bone Density Scan 1940 DTaP/Tdap/Td Vaccine (1 - Tdap) 1950 Hepatitis B Screening 1957 Pneumococcal vaccine 65+ (1 of 1 - PCV) 1989 07/20/2017 Well Visit 65+ 2004 Zoster Vaccine (2 of 3) 09/14/2017 07/20/2017 Covid-19 Vaccine (3 - season) 2024, 12/13/2020 Influenza Vaccine (Season Ended) 2025 08/15/2019, 06/16/2018, 07/20/2017 Insurance [employer] [place] [employer] [place] [facility] FEDERAL MEDICARE Care Teams Keno Terminal Operator Relationship Specialty Start Date End Date Rusty Squires DO [address] [facility] [address] [facility] [place], [place] [address] PCP - General Family Medicine 04/08/23 Amrita Fung NP [address] [place] [address] [facility] [place], [place] [id number] Nurse Practitioner Medical Oncology 03/24/23
--- OUTSIDE RECORDS SUMMARY | 2025-03-16 11:10 | XMS_ITS | Referral Summary ---
Author Organization [facility] Address [address] [place] [address] Phone Care Team Providers Care Autism Teacher Name Role Phone [place], Amritamichelle Cheung EYE CLINIC MANAGER Unavailable + [phone] Rusty Squires DO Primary Care Provider [phone] Encounters Date Type Department Care Team Description 01/21/2025 10:45 AM CDT Office Visit [facility] [address] [place] [address] Octavio Valentin MD Coronary artery disease involving [place] coronary artery of [place] heart without angina pectoris (Primary Dx); Essential hypertension; Hyperlipidemia LDL goal <100; Pulmonary hypertension (HCC); ROMELIA (obstructive sleep apnea) from Last 3 Months Allergies Active Allergy Reactions Criticality Noted Date Comments Lzy-Dkiuwxbhg-Kuhafyvqjbtra Unknown 04/27/20 18 Medications aspirin 81 mg [...] Thrombocytosis 07/10/2023 Coronary artery disease invo lving [place] coronary artery of [place] heart without angina pectoris 04/15/2022 Pulmonary hypertension 04/15/2022 Hyperlipidemia LDL goal <100 03/12/2021 Essential hypertension 03/12/2021 Abnormal stress test 03/12/2021 Hypersomnolence 03/12/2021 ROMELIA (obstructive sleep apnea) 03/12/2021 SOLANO (dyspnea on exertion) 03/12/2021 Chest pain 03/12/2021 Malignant neoplasm of upper- outer quadrant of left breast in female, estrogen receptor positive 10/22/2018 Immunizations Immunization Administration Dates Next Due Influenza, Trivalent, High D ose, Split, Preservative Free, Intramuscular 06/16/2018 Influenza, Unspecified 08/15/2019,07/20/2017 Moderna SARS-CoV-2 Monovalent Vaccination (12+ Y RS) 01/10/2021,12/13/2020 Pneumococcal, Unspecified 07/20/2017 ZOSTER LIVE 07/20/2017 Social History Tobacco Use Types Packs/Day Years [...] on file Legal Sex Female 10:43 AM 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
--- OUTSIDE RECORDS SUMMARY | 2025-03-16 11:10 | XMS_ITS | Clinical Summary ---
Author Organization [facility] Address [address] [place] [address] Care Team Providers Care Certified Breastfeeding Educator Name Role Phone Rusty Squires DO Primary Care Provider [phone] Source Comments [facility] [employer],non-owned Affiliates and Associated Physician Practices is amultiple site organization consisting of ambulatory clinics and hospital sitesin [place], [place], [place] and [place]. This disclosure is being madepursuant to the Care Everywhere program and may not contain all information available regarding this patient. Last updated 18.[facility] [employer] Allergies No known active allergies Medications * Be aware that medications may not be up to date on this document. Alwaysverify current medications with the patient. celecoxib (CeleBREX) 200 MG capsule Take 1 (one) capsule by mouth once daily Active aspirin EC (Ecotrin) 81 MG tablet Take 1 (one) tablet by mouth once daily Active amLODIPine (Norvasc) 5 MG tablet Take 1 (one) tablet by mouth once daily 05/13/2023 Active triamterene-hyd roCHLOROthiazid e (Maxzide-25) 37.5-25 MG tablet Take 1 (one) tablet by mouth once daily 06/10/2023 Active fenofibrate (Lofibra) 160 MG tablet Take 1 (one) tablet by mouth once daily 06/10/2023 Active bumetanide (Bumex) 1 MG tablet Take 1 (one) tablet by mouth once daily 07/09/2023 Active venlafaxine (Effexor) 75 MG tablet Take 3 (three) tablets by mouth once daily Active levothyroxine (Synthroid) 75 MCG tablet Take 1 (one) tablet by mouth every morning Active pantoprazole EC (Protonix) 20 MG tablet Take 1 (one) tablet by mouth once daily Active atorvastatin (Lipitor) 10 MG tablet Take 1 (one) tablet by mouth once daily Active fluticasone propionate (Flonase) 50 MCG/ACT nasal spray [place] into each nostril once daily as needed 02/21/2023 Active Cholecalciferol (Vitamin D-[address]) 25 MCG (1000 UT) Take 1 (one) tablet by mouth once daily Active B Complex-C (vitamin B complex with C) Take 1 (one) tablet by mouth once daily Active Active Problems No known active problems Immunizations Immunization Administration Dates Next Due Covid Moderna primary monovalent 12+ yr 0.5mL ,12/13/2020 INFLUENZA VACCINE 08/15/2019,07/20/2017 INFLUENZA VACCINE, HIGH-DOSE , QUADR. (FLUZONE HIGH-DOSE QUADRIVALENT; 65Y+), 0.7 ML (HD-IIV4) 06/16/2018 PNEUMOCOCCAL PPV VACCINE 07/20/2017 ZOSTER VACCINE, LIVE 07/20/2017 Social History Tobacco Use Types Packs/Day Years Used Date Smoking Tobacco: Former Cigarettes 2 15 1 988 - 2002 Smokeless Tobacco: Never Alcohol Use Standard Drinks/Week Comments Not Currently 0 (1 standard drink = 0.6 oz pur e alcohol) Comments Unknown Sex and Gender Information Value Date Recorded Sex Assigned at Not on file Legal Sex Female 6:21 AM SENIOR ANIMATOR Gender Identity Not on file Sexual Orientation Not on file Last Filed Vital Signs Vital Sign Reading Time Taken Comments Blood Pressure 119/64 08/26/2023 3:32 PM SENIOR ANIMATOR Pulse 81 08/26/2023 3:32 PM SENIOR ANIMATOR Temperature - - Respiratory Rate - - Oxygen Saturation 95% 08/26/2023 3:32 PM SENIOR ANIMATOR Inhaled Oxygen Concentration - - Weight 58.6 kg (129 lb 3.2 oz) 08/26/2023 3:32 P M SENIOR ANIMATOR Height 157.5 cm (5' 2) 08/26/2023 3:32 PM SENIOR ANIMATOR Body Mass Index 23.63 08/26/2023 3:32 PM SENIOR ANIMATOR Plan of Treatment Health Maintenance Due Date Last Done Comments BONE DENSITY TESTING 1940 DTAP/TDAP/TD VACCINES (1 - Tdap) 1958 Respiratory Syncytial Virus (RSV) Vaccine Pt: or over 60 yrs (1 - 1-dose 75+ series) 2014 ZOSTER VACCINE (2 of 3) 09/14/2017 07/20/2017 PNEUMOCOCCAL VACCINE 50+ (2 of 2 - PCV) 07/20/2018 07/20/2017 COVID-19 VACCINE (3 - 2023-2 5 season) 2024 01/10/2021, 12/13/2020 DEPRESSION SCREENING 10/20/2024 INFLUENZA VACCINE (Season Ended) 2025 08/15/2019, 06/16/2018, 07/20/2017 HEPATITIS B VACCINE Aged Out No longe r eligible based on patient's age to complete this topic HIB VACCINE Aged Out No longer eligi ble based on patient's age to complete this topic HPV VACCINE Aged Out No longer eligi ble based on patient's age to complete this topic MENINGOCOCCAL (Group B) VACCINE SHARED DECISION-MAKING Aged Out No longer eligible based on patient's age to complete this topic MENINGOCOCCAL GROUPS A/C/Y/W VACCINE Aged Out No longer eligible b ased on patient's age to complete this topic Insurance [employer]M Care Teams Certified Breastfeeding Educator Relationship Specialty Start Date End Date Rusty Squires DO [address] [place] [phone] PCP - General Family Medicine 08/26/23
[2025-03-16 11:26] LABS: Estimated Glomerular Filt Rate 33
== END 2025-03-16 11:01 | disposition home or self-care (01) ==
PROVIDERS: PCP Nurse Practitioner; Visit Provider Nurse Practitioner
DX: R91.8 Other nonspecific abnormal finding of lung field (principal); R06.02 Shortness of breath
CPT/HCPCS: 71275; Q9967

== ENCOUNTER 2025-03-17 11:13 | Outpatient (CLI) | payer BC, SELFPAY ==
--- OUTSIDE RECORDS SUMMARY | 2025-03-17 11:18 | XMS_ITS | Clinical Summary ---
Author Organization [facility] Address [address] [facility] [place] [address] Care Team Providers Care Call Or Contact Centre Operator Name Role Phone Rusty Squires DO Primary Care Provider [phone] Source Comments [facility] [employer],non-owned Affiliates and Associated Physician Practices is amultiple site organization consisting of ambulatory clinics and hospital sitesin [place], [place], [place] and [place]. This disclosure is being madepursuant to the Care Everywhere program and may not contain all information available regarding this patient. Last updated 18.[facility] [employer] Allergies No known active allergies Medications * [...] fluticasone propionate (Flonase) 50 MCG/ACT nasal spray [place] into each nostril once daily as needed [...] on file Legal Sex Female 6:21 AM AGRONOMY SUPERVISOR Gender Identity Not on file Sexual Orientation Not on file Last Filed Vital Signs Vital Sign Reading Time Taken Comments Blood Pressure 119/64 08/26/2023 3:32 PM AGRONOMY SUPERVISOR Pulse 81 08/26/2023 3:32 PM AGRONOMY SUPERVISOR Temperature - - Respiratory Rate - - Oxygen Saturation 95% 08/26/2023 3:32 PM AGRONOMY SUPERVISOR Inhaled Oxygen Concentration - - Weight 58.6 kg (129 lb 3.2 oz) 08/26/2023 3:32 P M AGRONOMY SUPERVISOR Height 157.5 cm (5' 2) 08/26/2023 3:32 PM AGRONOMY SUPERVISOR Body Mass Index 23.63 08/26/2023 3:32 PM AGRONOMY SUPERVISOR Plan of Treatment Health Maintenance Due Date [...] complete this topic Insurance ANTHEM Care Teams Call Or Contact Centre Operator Relationship Specialty Start Date End Date Rusty Squires DO [address] [place] [phone] PCP - General Family Medicine 08/26/23
--- OUTSIDE RECORDS SUMMARY | 2025-03-17 11:18 | XMS_ITS | Referral Summary ---
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 (Primary Dx); Essential hypertension; Hyperlipidemia LDL goal <100; Pulmonary hypertension (HCC); ROMELIA (obstructive sleep apnea) from Last 3 Months Allergies Active Allergy Reactions Criticality Noted Date Comments Iqj-Pxyibrsxi-Lvhalmxuptqbl Unknown 04/27/20 18 Medications aspirin 81 mg [...] Thrombocytosis 07/10/2023 Coronary artery disease invo lving sen[place] coronary artery of seneca heart without angina pectoris 04/15/2022 Pulmonary hypertension [...] on file Legal Sex Female 10:43 AM PREMISES TECHNICIAN Gender Identity Not on file Sexual Orientation [...] Plan of Treatment Not on file Insurance [facility] [employer] MD [facility] MEDICARE Care Teams Sliver Lapper Relationship Specialty [place] [address] [place] [address] [phone] PCP - General Family Medicine 04/08/23 Amrita Fung NP [address] [place] [address] [phone] Nurse Practitioner Medical Oncology 03/24/23
--- OUTSIDE RECORDS SUMMARY | 2025-03-17 11:18 | XMS_ITS | Clinical Summary ---
Author Organization [facility] Address [address] [place] [address] Phone Care Team Providers Care Major Account Representative Name Role Phone Amrita Fung TRAUMA DIRECTOR Unavailable [phone] Rusty Squires DO Primary Care Provider [phone] Allergies Active Allergy Reactions Criticality Noted Date Comments Nyw-Utfpqkzze-Zfwawftbvwmbl Unknown 04/27/20 18 Medications aspirin 81 mg [...] Thrombocytosis 07/10/2023 Coronary artery disease invo lving [place] coronary artery of [place] heart without angina pectoris 04/15/2022 Pulmonary hypertension 04/15/2022 Hyperlipidemia LDL goal <100 03/12/2021 Essential hypertension 03/12/2021 Abnormal stress test 03/12/2021 Hypersomnolence 03/12/2021 ROMELIA (obstructive sleep apnea) 03/12/2021 SOLANO (dyspnea on exertion) 03/12/2021 Chest pain 03/12/2021 Malignant neoplasm of upper- outer quadrant of left breast in female, estrogen receptor positive 10/22/2018 Encounters Date Type Department Care Team Description 01/21/2025 10:45 AM CDT Office Visit [facility] Cardiology [address] [place] [address] Octavio Valentin MD Coronary artery disease involving [place] coronary artery of [place] heart without angina pectoris (Primary Dx); Essential [...] on file Legal Sex Female 10:43 AM ANIMAL HUMANE AGENT SUPERVISOR Gender Identity Not on file Sexual [...] (Season Ended) 2025 08/15/2019, 06/16/2018, 07/20/2017 [place] [employer] [place] [place] [facility] FEDERAL MEDICARE Care Teams Major Account Representative Relationship Specialty Start Date End Date Rusty Squires DO [address] [facility] [address] [facility] [place], [place] [address] PCP - General Family Medicine 04/08/23 Amrita Fung NP [address] [place] [address] [facility] [place], [place] [address] Nurse Practitioner Medical Oncology 03/24/23
[2025-03-17 20:17] LABS: Alanine Aminotransferase 19 U/L (6-35); Albumin Level 4.1 g/dL (3.5-5.1); Alkaline Phosphatase 70 U/L (38-126); Anion Gap 8 mmol/L (4-12); Aspartate Amino Transferase 50 U/L (14-36); Bilirubin,Total 0.5 mg/dL (0.2-1.3); Blood Urea Nitrogen 50 mg/dL (7-17); Calcium 10.3 mg/dL (8.4-10.2); Carbon Dioxide 29 mmol/L (22-30); Chloride 102 mmol/L (98-107); Cholesterol 128 mg/dL (0-200); Estimated Glomerular Filt Rate 35; Glucose 116 mg/dL (65-110); HDL Direct 50 mg/dL; Potassium 4.2 mmol/L (3.4-5.0); Sodium 139 mmol/L (137-145); Triglycerides 123 mg/dL (<150)
[2025-03-17 20:20] LABS: Iron 36 ug/dL (37-170)
[2025-03-17 20:24] LABS: Creatinine Urine 54.7 mg/dL
[2025-03-17 20:26] LABS: Hematocrit 38.9 % (37.0-47.0); Hemoglobin 11.8 g/dL (12.0-15.0); Mean Corpuscular HGB Conc 30.3 g/dl (32-36); Mean Corpuscular Hemoglobin 28.7 pg (26-34); Mean Corpuscular Volume 94.6 fl (80-100); Mean Platelet Volume 9.3 fl (7.4-10.4); Platelet Count Result 672 k/mm3 (150-375); Red Blood Count 4.11 M/mm3 (4.2-5.4); Red Cell Distribution Width 16.4 % (11.5-14.5)
[2025-03-17 20:29] LABS: LDL Cholesterol Direct 42 mg/dL
[2025-03-17 20:29] LABS: MALB Creatinine Ratio 34.2 mg/g (0-30); Microalbumin Urine Random 18.7 mg/L (0-16.7)
[2025-03-17 20:32] LABS: Percent Iron Saturation 9 % (20-50)
[2025-03-17 20:35] LABS: Vitamin D 25 Hydroxy 54.8 ng/mL
[2025-03-17 20:43] LABS: Hemoglobin A1C 6.2 % (<5.7)
[2025-03-17 20:48] LABS: Thyroid Stimulating Hormone 0.535 uIU/mL (0.465-4.680)
== END 2025-03-17 11:14 | disposition home or self-care (01) ==
LOC: ANHGOSHLAB 11:14
PROVIDERS: PCP Nurse Practitioner; Visit Provider Nurse Practitioner
DX: E11.22 Type 2 diabetes mellitus with diabetic chronic kidney disease (principal); N18.31 Chronic kidney disease, stage 3a; E03.9 Hypothyroidism, unspecified; E55.9 Vitamin D deficiency, unspecified; R53.83 Other fatigue; E78.2 Mixed hyperlipidemia; E11.65 Type 2 diabetes mellitus with hyperglycemia
CPT/HCPCS: 36415; 80053; 80061; 82043; 82306; 82607; 83036; 83540; 83550; 84439; 84443; 85027

== ENCOUNTER 2025-03-25 09:55 | Outpatient (CLI) | payer BC, SELFPAY ==
--- OUTSIDE RECORDS SUMMARY | 2025-03-25 10:00 | XMS_ITS | Clinical Summary ---
Author Organization [facility] Address [address] [place] [address] Care Team Providers Care Senior Web Services Developer Name Role Phone Rusty Squires DO Primary Care Provider [phone] Source Comments [facility] [employer],non-owned Affiliates and Associated Physician Practices is amultiple site organization consisting of ambulatory clinics and hospital sitesin [place], [place], [place] and [place]. This disclosure is being madepursuant to the Care Everywhere program and may not contain all information available regarding this patient. Last updated 18.[facility] [employer] Allergies No known active allergies Medications * [...] fluticasone propionate (Flonase) 50 MCG/ACT nasal spray [place] into each nostril once daily as needed [...] on file Legal Sex Female 6:21 AM WASTEWATER ENGINEER Gender Identity Not on file Sexual Orientation Not on file Last Filed Vital Signs Vital Sign Reading Time Taken Comments Blood Pressure 119/64 08/26/2023 3:32 PM WASTEWATER ENGINEER Pulse 81 08/26/2023 3:32 PM WASTEWATER ENGINEER Temperature - - Respiratory Rate - - Oxygen Saturation 95% 08/26/2023 3:32 PM WASTEWATER ENGINEER Inhaled Oxygen Concentration - - Weight 58.6 kg (129 lb 3.2 oz) 08/26/2023 3:32 P M WASTEWATER ENGINEER Height 157.5 cm (5' 2) 08/26/2023 3:32 PM WASTEWATER ENGINEER Body Mass Index 23.63 08/26/2023 3:32 PM WASTEWATER ENGINEER Plan of Treatment Health Maintenance Due Date [...] complete this topic Insurance ANTHEM Care Teams Senior Web Services Developer Relationship Specialty Start Date End Date Rusty Squires DO [address] [place] [phone] PCP - General Family Medicine 08/26/23
[2025-03-25 12:13] LABS: Hematocrit 38.4 % (37.0-47.0); Hemoglobin 11.9 g/dL (12.0-15.0); Mean Corpuscular Volume 93.4 fl (80-100); Platelet Count Result 687 k/mm3 (150-375); Red Blood Count 4.11 M/mm3 (4.2-5.4); Red Cell Distribution Width 15.7 % (11.5-14.5); White Blood Count 9.5 K/mm3 (4.5-10.0)
[2025-03-25 12:44] LABS: Iron 49 ug/dL (37-170)
[2025-03-25 12:58] LABS: Percent Iron Saturation 12 % (20-50)
== END 2025-03-25 09:56 | disposition home or self-care (01) ==
LOC: ANHGOSHLAB 09:56
PROVIDERS: PCP Nurse Practitioner; Visit Provider Nurse Practitioner
DX: D64.9 Anemia, unspecified (principal); E61.1 Iron deficiency
CPT/HCPCS: 36415; 83540; 83550; 85027

== ENCOUNTER 2025-04-04 11:09 | Outpatient (CLI) | payer BC, SELFPAY ==
--- OUTSIDE RECORDS SUMMARY | 2025-04-04 12:23 | XMS_ITS | Clinical Summary ---
Author Organization [facility] Address [address] [place] [address] Phone Care Team Providers Care Gang Knife Fish Chopper Name Role Phone Amrita Fung WORK ORDER DETAILER Unavailable [phone] Rusty Squires DO Primary Care Provider [phone] Allergies Active Allergy Reactions Criticality Noted Date Comments Bky-Xilvajbhg-Rustquaiqzssu Unknown 04/27/20 18 Medications aspirin 81 mg [...] Thrombocytosis 07/10/2023 Coronary artery disease invo lving [place] coronary artery of [place] heart without angina pectoris 04/15/2022 Pulmonary hypertension 04/15/2022 Hyperlipidemia LDL goal <100 03/12/2021 Essential hypertension 03/12/2021 Abnormal stress test 03/12/2021 Hypersomnolence 03/12/2021 ROMELIA (obstructive sleep apnea) 03/12/2021 SOLANO (dyspnea on exertion) 03/12/2021 Chest pain 03/12/2021 Malignant neoplasm of upper- outer quadrant of left breast in female, estrogen receptor positive 10/22/2018 Encounters Date Type Department Care Team Description 01/21/2025 10:45 AM CDT Office Visit [facility] Cardiology [address] [place] [address] Octavio Valentin MD Coronary artery disease involving [place] coronary artery of [place] heart without angina pectoris (Primary Dx); Essential [...] on file Legal Sex Female 10:43 AM BRICK CARRIER Gender Identity Not on file Sexual Orientation [...] (Season Ended) 2025 08/15/2019, 06/16/2018, 07/20/2017 [place] [employer] [place] [employer] [place] [facility] FEDERAL MEDICARE Care Teams Gang Knife Fish Chopper Relationship Specialty Start Date End Date Rusty Squires DO [address] [facility] [address] [facility] [place], [place] [address] PCP - General Family Medicine 04/08/23 Amrita Fung NP [address] [facility] [place], [place] [address] Nurse Practitioner Medical Oncology 03/24/23
--- OUTSIDE RECORDS SUMMARY | 2025-04-04 12:23 | XMS_ITS | Referral Summary ---
Author Organization [facility] Address [address] [place] [address] Phone Care Team Providers Care Director Of Purchasing Name Role Phone Kenton, Amritamichelle Cheung PROPERTY INSURANCE CLAIMS EXAMINER Unavailable [phone]- [phone] Rusty Squires DO Primary Care Provider [phone] Encounters Date Type Department Care Team Description 01/21/2025 10:45 AM CDT Office Visit [facility] Cardiology [address] [place] [address] Octavio Valentin MD Coronary artery disease involving [place] coronary artery of [place] heart without angina pectoris (Primary Dx); Essential hypertension; Hyperlipidemia LDL goal <100; Pulmonary hypertension (HCC); ROMELIA (obstructive sleep apnea) from Last 3 Months Allergies Active Allergy Reactions Criticality Noted Date Comments Afm-Jsurtxxjd-Bcaxtrorddlrb Unknown 04/27/20 18 Medications aspirin 81 mg [...] Thrombocytosis 07/10/2023 Coronary artery disease invo lving [place] coronary artery of [place] heart without angina pectoris 04/15/2022 Pulmonary hypertension [...] on file Legal Sex Female 10:43 AM HEALTH SPECIALIST Gender Identity Not on file Sexual Orientation [...] Treatment Not on file Insurance [facility] [employer] [place] [facility] MEDICARE Care Teams Director Of Purchasing Relationship Specialty [place] [address] [place] [address] [phone] PCP - General Family Medicine 04/08/23 Amrita Fung NP [address] [place] [phone] Nurse Practitioner Medical Oncology 03/24/23
--- OUTSIDE RECORDS SUMMARY | 2025-04-04 12:23 | XMS_ITS | Clinical Summary ---
Author Organization [facility] Address [address] [facility] [place] [address] Care Team Providers Care Family Service Aide Name Role Phone Rusty Squires DO Primary Care Provider [phone] Source Comments [facility] [employer],non-owned Affiliates and Associated Physician Practices is amultiple site organization consisting of ambulatory clinics and hospital sitesin [place], [place], [place] and [place]. This disclosure is being madepursuant to the Care Everywhere program and may not contain all information available regarding this patient. Last updated 18.[facility] [employer] Allergies No known active allergies Medications * [...] fluticasone propionate (Flonase) 50 MCG/ACT nasal spray [place] into each nostril once daily as needed [...] on file Legal Sex Female 6:21 AM OPERATING ROOM NURSE Gender Identity Not on file Sexual Orientation Not on file Last Filed Vital Signs Vital Sign Reading Time Taken Comments Blood Pressure 119/64 08/26/2023 3:32 PM OPERATING ROOM NURSE Pulse 81 08/26/2023 3:32 PM OPERATING ROOM NURSE Temperature - - Respiratory Rate - - Oxygen Saturation 95% 08/26/2023 3:32 PM OPERATING ROOM NURSE Inhaled Oxygen Concentration - - Weight 58.6 kg (129 lb 3.2 oz) 08/26/2023 3:32 P M OPERATING ROOM NURSE Height 157.5 cm (5' 2) 08/26/2023 3:32 PM OPERATING ROOM NURSE Body Mass Index 23.63 08/26/2023 3:32 PM OPERATING ROOM NURSE Plan of Treatment Health Maintenance Due Date [...] complete this topic Insurance ANTHEM Care Teams Family Service Aide Relationship Specialty Start Date End Date Rusty Squires DO [address] [place] [phone] PCP - General Family Medicine 08/26/23
--- NOTE | 2025-04-27 22:19 | P.SLEEP_ITS ---
Sleep Study Date of Study: 04/04/25 Ordering Provider: JOSE CARLOS Ramos Interpreting Physician: Wanda Prescott MD Sleep Study Type: Split Polysomnogram Height: 1.57 m Weight: 56.699 kg Body Mass Index: 22.8 Neck Circumference (inches): 14 [place]: 9 Reason for Sleep Study Non restorative sleep; known obstructive sleep apnea, her CPAP machine is old and the head gear does not fit properly. She told the sleep teech that she used her PAP machine leading up to this study. Sleep History Tessa Wilson is an 85-year-old woman with history of obstructive sleep apnea, her current CPAP machine is old. Her current head gear is difficult to get into position properly. She rarely awakens from sleep short of breath. She occasionally wakes at night with heartburn, belching or coughing.??She occasionally snores, never snores loudly enough that others complain. She occasionally has trouble sleeping when she has a cold. She never wakes up gasping for breath during the night. She rarely has breathing problems at night observed by others. She never sweats excessively at night. She never notices her heart pounding or beating irregularly during the night. She frequently falls asleep during the day. She frequently falls asleep involuntarily, never falls asleep while driving. She never experiences loss of muscle tone with strong emotion. She never feels paralyzed on waking or falling asleep. She rarely e xperiences vivid dreams upon waking or falling asleep. She never feels afraid of going to sleep. She never has nightmares. She rarely recalls her dreams. She occasionally has thoughts racing through her mind. She occasionally feels sad or depressed. She rarely feels anxiety. She never notices parts of her body jerk. She never kicks during the night. She never feels crawling or aching feelings in her legs. She never feels leg pain at night. She never has morning jaw pain, and never grinds her teeth at night. She never feels bothered by pain during the day, is never awakened by pain during the night. She never wakes up feeling stiff in the morning, never wakes feeling sore or achy in the morning. She never awakens with pain in her neck, spine, or joints. Normal bedtime is 11:30 p.m., waking once at night, returning to sleep within 10 minutes after a trip to the bathroom. She reports getting between 6 and 8 hours of sleep per night. She keeps the same schedule on weekends. She takes naps in the afternoon and a short nap lasting 10-15 minutes may be refreshing. She is drowsy for 2 hours after waking. Habits:??Tobacco: Quit smoking 8 years ago Caffeine: 2 servings per day Alcohol: none Recreational substances: none [facility] Past Medical History Medical History Depression Light headedness Dizziness Lumbar spondylosis Scoliosis Degenerative joint disease (DJD) of hip Chronic right hip pain Back Pain Sinus infection Unsteady gait Hypercalcemia Leg pain, right Coronary artery disease Obstructive sleep apnea Chest pain Hypothyroidism, unspecified Vertigo Chronic kidney disease, stage 3 (moderate) Essential (primary) hypertension Gastro-esophageal reflux disease without esophagitis Major depressive disorder, recurrent, mild Malignant neoplasm of unspecified site of right female breast Mixed hyperlipidemia Type 2 diabetes mellitus with hyperglycemia Surgical History Surgical History History of cardiac cath (~03/2021) History of appendectomy (~1954) H/O bladder repair surgery (~1982) H/O: hysterectomy (~1982) History of knee replacement (~2002) History of knee replacement (~2006) History of lumpectomy (~2010) H/O lumpectomy (~2013) Family History Family History Mother Family history of lung cancer Hypertension Family history of kidney disease Family history of throat cancer Father Family history of lung cancer Family history of coronary artery disease Social History Social History Smoking status: Former smoker Tobacco type: cigarettes Smoking end date: 10/20/84 Alcohol intake: never Lack of Transportation: No Lack of Food: Never True Current Housing: I Have Housing Concerned About Future Housing: No Difficulty Paying Gas/Electric Bills: No Currently Unemployed: No Education: High School Diploma/GED Difficulty w/ Childcare or Family Care: No Living arrangements: alone Gender identity (if verbalized by the patient): Female Sexual Orientation (if Verbalized by the Patient): Straight or Heterosexual Spiritual care concerns: No Medications Home Medications ?Medication ?Instructions ?Recorded ?Confirmed ?Type aspirin 81 mg tablet,delayed 81 mg PO DAILY 09/11/20 04/26/25 History release (Adult Low Dose Aspirin) cholecalciferol (vitamin D3) 25 25 mcg PO DAILY 09/11/20 04/26/25 History mcg (1,000 unit) tablet multivitamin with iron (Daily 1 tablet PO DAILY 12/27/22 04/26/25 History Multiple Vitamins with Iron tablet) vitamin B complex 1 cap PO DAILY 12/27/22 04/26/25 History acetaminophen 650 mg 650 mg PO Q12H 02/20/24 04/26/25 History tablet,extended release (Tylenol Arthritis Pain) potassium chloride 10 mEq 10 meq PO DAILY #30 tabs 07/26/24 04/26/25 Rx tablet,extended release albuterol sulfate 90 mcg/actuation 2 puff inhalation Q4-6H PRN 09/27/24 04/26/25 Rx aerosol inhaler shortness of breath or wheezing 30 days #8.5 grams tiotropium 2.5 mcg-olodaterol 2.5 2 puff inhalation DAILY #12 grams 10/21/24 04/26/25 Rx mcg/actuation mist for inhalation (Stiolto Respimat) fluticasone propionate 50 See Rx Instructions .Route 11/12/24 04/26/25 Rx mcg/actuation nasal .COMPLEX #32 grams spray,suspension levothyroxine 75 mcg tablet 75 mcg PO DAILY #90 tabs 12/31/24 04/26/25 Rx (Euthyrox) venlafaxine 75 mg capsule,extended 225 mg (3 x 75 mg) PO DAILY #270 01/25/25 04/26/25 Rx release 24 hr caps atorvastatin 10 mg tablet 10 mg PO DAILY #90 tabs 01/26/25 04/26/25 Rx pantoprazole 20 mg tablet,delayed 20 mg PO DAILY #90 tabs 03/10/25 04/26/25 Rx release fenofibrate 160 mg tablet 160 mg PO DAILY #90 tabs 03/15/25 04/26/25 Rx ferrous sulfate 325 mg (65 mg 650 mg PO DAILY 03/18/25 04/26/25 History iron) tablet amlodipine 5 mg tablet 5 mg PO DAILY #90 tabs 03/21/25 04/26/25 Rx losartan 50 mg-hydrochlorothiazide 2 tablet PO DAILY #180 tabs 03/21/25 04/26/25 Rx 12.5 mg tablet bumetanide 1 mg tablet 1 mg PO DAILY #90 tabs 04/26/25 04/26/25 Rx calcium carbonate 500 mg PO DAILY #90 tabs 04/26/25 04/26/25 Rx celecoxib 200 mg capsule 200 mg PO DAILY #90 caps 04/26/25 04/26/25 Rx denosumab 60 mg/mL subcutaneous 60 mg subcut P2LISOOL #1 mL 04/26/25 04/26/25 Rx syringe (Prolia) Sleep Procedure A split night polysomnogram using the Native multi-channel system recorded the standard physiologic parameters including EEG, EOG, submentalis EMG, anterior tibialis EMG, EKG, body position, nasal and oral airflow using nasal pressure sensor and thermistor. Respiratory parameters of chest and abdominal movements were recorded with Respiratory Inductance Plethysmography belts. Oxygen saturation was recorded by pulse oximetry. Video monitoring was also performed. Sleep stages, periodic limb movements, and EEG arousals were scored in 30 second epochs according to the criteria of the AASM Scoring Manual. The Apnea-Hypopnea Index was calculated using CMS guidelines for definition of hypopnea while scoring respiratory events. After the baseline portion the patient met criteria for a titration with an AHI of 6.1 and desaturation to 87%. She used a small ResMed AirTouch F20 fullface mask with heated humidity, CPAP was titrated from 5 cm to 15 cm. At 15 cm, the patient spent 44 minutes in bed, 4 minutes awake, 39.5 minutes in non-REM, 0.5 minutes in REM with a sleep efficiency of 91%. The residual apnea-hypopnea index was 4.5. The lowest saturation was 91%. She had supine sleep during the night, so the REM was in the supine position. Sleep Architecture During the diagnostic portion of the study, the total recording time was 188.8 minutes. The total sleep time was 146.5 minutes. Sleep latency was 13.3 minutes. REM latency was not calcullated as she had no REM. Sleep Efficiency was 77.6%. The patient had 17 awakenings for an awakening index of 7.0. Wake after sleep onset time was 29.0 minutes. The patient spent 38.0 minutes, 25.9% of total sleep time in Stage N1. The patient spent 108.5 minutes, 74.1% in Stage N2. The patient spent no time in Stage N3 or Stage REM sleep. At 01:43:23 AM the patient was placed on PAP treatment and was titrated at CPAP pressures ranging from 5 cm to 15 cm. During the treatment portion of the study, the total recording time was 283.5 minutes. The total sleep time was 254.0 minutes. Sleep latency was 6.0 minutes. REM latency was 129.0 minutes. Sleep Efficiency was 89.6%. Wake after Sleep Onset time was 24.0 minutes. The patient spent 31.0 minutes, 12.2% of total sleep time in Stage N1. The patient spent 215.5 minutes, 84.8% in Stage N2. The patient spent no time in Stage N3. The patient spent 7.5 minutes, 3.0% in Stage REM. Respiratory Analysis During the diagnostic portion of the study, the patient had 12 hypopneas, 3 obstructive apneas, no mixed apneas, and no central apneas for an overall Apnea Hypopnea Index of 6.1 events per hour. The REM Apnea Hypopnea Index was 0. The NREM Apnea Hypopnea Index was 6.1. The patient had a Central Apnea Hypopnea Index of 0. There were no Respiratory Effort Related Arousals. The Respiratory Disturbance Index is 15.6 events per hour. There was no evidence of Rishi- Spangler Respirations. During the treatment portion of the study, the patient had 63 hypopneas, - obstructive apneas, no mixed apneas, and no central apneas for an overall Apnea Hypopnea Index of 14.9 events per hour. The REM Apnea Hypopnea Index was 24.0. The NREM Apnea Hypopnea Index was 14.6. The patient had a Central Apnea Hypopnea Index of 0. There were no Respiratory Effort Related Arousals. The Respiratory Disturbance Index is 28.6 events per hour. There was no evidence of Rishi- Spangler Respirations. Arousals During the diagnostic portion of the study, there were a total of 58 arousals for an arousal index of 23.8. There were 11 respiratory arousals for an index of 4.5. There were 21 periodic limb movement arousals for an index of 8.6. There were 2 isolated limb movement arousals for an index of 0.8. There were 25 spontaneous arousals for an index of 10.2. During the treatment portion of the study, there were a total of 49 arousals for an index of 11.6. There were 15 respiratory arousals for an index of 3.5. There were 8 periodic limb movement arousals for an index of 1.9. There were 5 isolated limb movement arousals for an index of 1.2. There were 22 spontaneous arousals for an index of 5.2. Periodic Limb Movements During the diagnostic portion of the study, the patient had 36 isolated limb movements with an index of 14.7. The patient had 167 periodic limb movements with an index of 68.4. The patient had a total of 203 limb movements with a total limb movement index of 83.1. During the treatment portion of the study, the patient had 52 isolated limb movements with an index of 12.3. The patient had 118 periodic limb movements with an index of 27.9. The patient had a total of 170 limb movements with a total limb movement index of 40.2. Oximetry Data During the diagnostic portion of the study, the patient had an average oxygen saturation of 92.6% in wake with a minimum oxygen saturation of 88% and a maximum oxygen saturation of 98%. The patient had an average oxygen saturation of 91.1% in sleep with a minimum oxygen saturation of 87% and a maximum oxygen saturation of 97%. The patient had 57 oxygen desaturations resulting in an Oxygen Desaturation Index of 23.3. The patient spent 1.4 minutes, 0.8% of total sleep time with an oxygen saturation less than 88%. During the treatment portion of the study, the patient had an average oxygen saturation of 94.4% in wake with a minimum oxygen saturation of 90% and a maximum oxygen saturation of 98%. The patient had an average oxygen saturation of 93.3% in sleep with a minimum oxygen saturation of 85% and a maximum oxygen saturation of 98%. The patient had 137 oxygen desaturations resulting in an Oxygen Desaturation Index of 32.4. The patient spent 1.1 minutes, 0.4% of total sleep time with an oxygen saturation less than 88%. Snoring Profile During the diagnostic portion, snoring was minimal. At the optimal pressure, snoring was eliminated. Cardiac Profile During the diagnostic portion of the study, the EKG showed normal sinus rhythm. The average pulse rate was 85.1 bpm. The minimum pulse rate was 81 bpm. The maximum pulse rate was 97 bpm. During the treatment portion of the study, the EKG showed normal sinus rhythm. The average pulse rate was 77.6 bpm. The minimum pulse rate was 71 bpm. The maximum pulse rate was 92 bpm. EEG Profile EEG was unremarkable, no evidence of seizures. Assessment and Plan Assessment and Plan (1) Obstructive sleep apnea: Code(s): G47.33 - Obstructive sleep apnea (adult) (pediatric) Status: Acute Assessment and Plan: This spilt night sleep study on 04/04/2025 shows mild obstructive sleep apnea, the AHI was 6.1 with desaturation to 87% and snoring, successfully treated using a small ResMed AirTouch F20 fullface mask and heated humidity with the CPAP pressure of 15 cm. At 15 cm, the patient spent 44 minutes in bed, 4 minutes awake, 39.5 minutes in non-REM, 0.5 minutes in REM with a sleep efficiency of 91%. The residual apnea-hypopnea index was 4.5. The lowest saturation was 91%. She had supine sleep during the night, so the REM was in the supine position. The patient had limited REM on both portions of the study. Using PAP regularly, it is expected that she will be able to have more consolidated sleep with an increased percentage of REM. The patient should be prescribed this ResMed equ ipment as well as tubing, filters and reservoir. This should be used with all episodes of sleep. Compliance should be reviewed within 31-90 days of starting therapy for usage greater than 4 hours per night greater than 70% of the nights. The patient should be asked about symptoms such as excessive daytime sleepiness, quality of sleep, decreased nocturia, increased mental functioning such as mem ory, mood, and concentration. the patient told the tech that she used her PAP equipment leading up to night od this study. using PAP up to the night of the study may have lead to under-titration. Clinical correlation si recommended. She had excessive periodic limb movements during this study, her PLM index on the baseline is 68.4, and during treatment 27.9. These did not lead to significant numbers of arousals. Clinical correlation is recommended. In her sleep questionnaire, she said that she never had uncomfortable feelings in her legs at night and that she never kicked at night. Data The data obtained during this sleep study is adequate for interpretation. Certification This sleep study has been reviewed by a board certified sleep medicine physician.
[2025-04-28 17:00] VITALS: BMI 22.8
== END 2025-04-05 07:14 | disposition home or self-care (01) ==
LOC: ANHCSM 11:12
PROVIDERS: PCP Nurse Practitioner; Visit Provider Nurse Practitioner
DX: G47.33 Obstructive sleep apnea (adult) (pediatric) (principal)
CPT/HCPCS: 95811

== ENCOUNTER 2025-04-18 10:09 | Outpatient (CLI) | payer BC, SELFPAY ==
--- NOTE | ~2025-04-18 | DEXA_ITS ---
Bone Density Report Name: MICHELLE KHOURY Age: 84 Sex: Female Ethnicity: White Date of : 1940 Indication: postmenopausal; screening for osteoporosis; height loss; cancer; hysterectomy; Referring Provider: SEGUN MCBRIDE Study: Bone densitometry was performed. Exam Date: April 18, 2025 Accession number: [id number] Bone Density: Region BMD T-score Z-score Classification AP Spine(L1, L4) 1.291 2.3 5.2 Normal Femoral Neck (Left) 0.717 -1.2 1.3 Osteopenia Total Hip (Left) 0.924 -0.2 2.2 Normal Femoral Neck (Right) 0.797 -0.5 2.1 Normal Total Hip (Right) 0.964 0.2 2.5 Normal Total Hip Mean 0.944 0.0 2.4 Normal World Health Organization criteria for BMD impression classify patients as: Normal (T-score at or above -1.0), Osteopenia (T-score between -1.0 and -2.5), or Osteoporosis (T-score at or below -2.5). 10-year Fracture Risk(1): Major Osteoporotic Fracture 12% Hip Fracture 3.0% Reported Risk Factors: [place] (), Neck BMD=0.717, BMI=24.2 (1) FRAX(R) Version 3.08. Fracture probability calculated for an untreated patient. Fracture probability may be lower if the patient has received treatment. Previous Exams: Region Exam Age BMD T-score BMD Change BMD Change Date g/cm2 vs Baseline vs Previous AP Spine (L1,L4) 04/18/2025 84 1.291 2.3 0.018 (1.4%) 0.018 (1.4%) 03/25/2017 76 1.273 2.1 Total Hip(Left) 04/18/2025 84 0.924 -0.2 -0.065 (-6.6%) -0.065 (-6.6%) 03/25/2017 76 0.989 0.4 Total Hip(Right) 04/18/2025 84 0.964 0.2 -0.065 (-6.3%) -0.065 (-6.3%) 03/25/2017 76 1.028 0.7 *Denotes significance at 95% confidence level, LSC for AP Spine = 0.022 g/cm2, LSC for Total Hip = 0.027 g/cm2 Clinical Information Provided by Patient: Has used the following medications: Vitamin D, Calcium Has the following medical conditions: Cancer, Hysterectomy Patient maximum height was 62.0 No regular weight bearing exercise Does not regularly consume dairy products Drinks caffeinated beverages Onset of menses at age 9 Number of children 4 Impression: The patient has low bone mass, based on the Left Femoral Neck T-score. The patient has an estimated ten-year risk of hip fracture of 3% and an estimated ten-year risk of major fracture of 12%, based on the WHO FRAX algorithm. The BMD for the Total Hip(Left) decreased, changing by -6.6% since the last DXA exam. The BMD for the Total Hip(Right) decreased, changing by -6.3% since the last DXA exam. Discussion: BONE DENSITY IS LOW AT ONE OR MORE SKELETAL SITES. THE PATIENT'S BMD AND CLINICAL RISK FACTORS CONTRIBUTE TO THIS PATIENT'S INCREASED RISK OF FRACTURE. This patient's lowest T-score is low at one or more skeletal sites. It meets the World Health Organization's (WHO) criteria for ?low bone mass? (T-score between -1.0 and -2.5). The patient's 10-year risk of hip fracture as calculated by FRAX exceeds the threshold where pharmacological therapy is recommended by the National Osteoporosis Foundation (NOF). However, all treatment decisions require clinical judgment and consideration of individual patient factors, including patient preferences, comorbidities, previous drug use, risk factors not captured in the FRAX model (e.g., frailty, falls, vitamin D deficiency, increased bone turnover, interval significant decline in bone density) and possible under or overestimation of fracture risk by FRAX. The patient should follow a healthful lifestyle (good nutrition with adequate calcium and vitamin D, and appropriate weight-bearing exercise). Follow-Up: Consider a repeat BMD and Vertebral Fracture Assessment (VFA) exam in 2 years or sooner if medically necessary, to reassess this patient's status. Reported by: INES on 04/18/2025 10:53:00 AM. Reviewed, dictated and finalized at location A.
== END 2025-04-18 10:10 | disposition home or self-care (01) ==
PROVIDERS: PCP Nurse Practitioner; Visit Provider Nurse Practitioner
DX: M85.88 Other specified disorders of bone density and structure, other site (principal)
CPT/HCPCS: 77080

== ENCOUNTER 2025-06-10 09:48 | Outpatient (CLI) | payer BC, SELFPAY ==
--- NOTE | ~2025-06-10 | MM_ITS ---
EXAMINATION: MM screening [facility] BI w sage HISTORY: Screening mammogram TECHNIQUE: Craniocaudal and mediolateral oblique 3-D tomosynthesis images were obtained and synthetic 2-D images were generated. CAD analysis was submitted and interpreted. COMPARISON: 07/16/2023, 11/01/2021, 09/21/2020 BREAST PARENCHYMAL COMPOSITION:Dense: The breasts are heterogeneously dense, which may obscure small masses. FINDINGS: Extensive bilateral benign calcified lesions are present. No suspicious mass, calcification, or architectural distortion are identified in either breast to suggest malignancy. There has been no suspicious interval change. IMPRESSION: No mammographic evidence of malignancy. Recommend routine screening mammography in one year. BI-RADS Category 2: Benign finding(s). Reviewed, dictated and finalized at location .
--- OUTSIDE RECORDS SUMMARY | 2025-06-10 09:53 | XMS_ITS | Encounter Summary ---
Author Organization [facility] Address [address] [place] [id number] Care Team Providers Care Time Analysis Clerk Name Role Phone Pablo Rios MD Primary Care Provider [phone] Encounter Details Date Type Department Care Team (Late st Contact Info) Description 12/13/[address] [facility] Pre-Admission Testing [place], [place] [id number] Nic Escoto MD [address] [facility]. [place], [place] [id number] Social History Tobacco Use Types Packs/Day Years Used Date Smoking Tobacco: Former Cigarettes 0.3 10 Smokeless Tobacco: Never Comments:more socially than anything Alcohol Use Standard Drinks/Week Comments Not Currently 0 (1 standard drink = 0.6 oz pur e alcohol) rarely Comments No Sex and Gender Information Value Date Recorded Sex Assigned at Not on file Legal Sex Female 4:34 PM CDT Gender Identity Not on file Sexual Orientation Not on file COVID-19 Exposure Response Date Recorded In the last month, have you been in contact with someone who was confirmed or suspected to have Coronavirus / COVID-19? No / Unsure 12/13/2020 1:43 PM LANDSCAPE ARCHITECTURE TEACHER documented as of this encounter Plan of Treatment Not on file documented as of this encounter Results * PRE-SURGICAL/PRE-PROCEDURE CORONAVIRUS (COVID 19) (12/18/2020 10:40 AM LANDSCAPE ARCHITECTURE TEACHER) CORONAVIRUS SARS COV 2 PCR (RESP) NOT DETECTED NOT DETECTED 12/19/2020 9:16 PM LANDSCAPE ARCHITECTURE TEACHER [employer] [facility] Comment: A Not Detected (negative) test result for this test means that SARS- CoV-2 RNA was not present in the specimen above the limit of detection. A negative result does not rule out the possibility of COVID-19 and should not be used as the sole basis for treatment or patient management decisions. If COVID-19 is still suspected, based on exposure history together with other clinical findings, re-testing should be considered in consultation with public health authorities. Laboratory test results should always be considered in the context of clinical observations and epidemiological data in making a final diagnosis and patient management decisions. Please review the Fact Sheets and FDA authorized labeling available for health care providers and patients using the following websites: [email or web address]/fact-sheet.html This test has been authorized by the FDA under an Emergency Use Authorization (EUA) for use by authorized laboratories. Due to the current public health emergency, [facility] [employer] is receiving a high volume of samples from a wide variety of swabs and media for COVID-19 testing. In order to serve patients during this public health crisis, samples from appropriate clinical sources are being tested. Negative test results derived from specimens received in non-commercially manufactured viral collection and transport media, or in media and sample collection kits not yet authorized by FDA for COVID-19 testing should be cautiously evaluated and the patient potentially subjected to extra precautions such as additional clinical monitoring, including collection of an additional specimen. Methodology: Nucleic Acid Amplification Test (NAAT) includes RT-PCR or TMA Additional information about COVID-19 can be found at the [facility] [employer] website: [email or web address]. Test performed at [employer] [facility] [address] [place] [address] Director: LILIA JONES DO,MPH FIRST TEST YES 12/18/2020 11:50 AM [facility] EMPLOYED IN HEALTHCARE UNKNOWN 12/18/2020 11:50 AM [facility] SYMPTOMATIC DEFINED BY CDC NO 12/18/2020 11:50 AM LANDSCAPE ARCHITECTURE TEACHER [facility] DATE OF SYMPTOM ONSET NO 12/18/2020 12:19 PM LANDSCAPE ARCHITECTURE TEACHER [facility] HOSPITALIZATION STATUS NO 12/18/2020 11:50 AM LANDSCAPE ARCHITECTURE TEACHER [facility] PATIENT IN ICU NO 12/18/2020 11:50 AM LANDSCAPE ARCHITECTURE TEACHER [facility] RESIDENT OF CONGREGATE CARE UNKNOWN 12/18/2020 11:50 AM LANDSCAPE ARCHITECTURE TEACHER [facility] NO 12/18/2020 12:19 PM LANDSCAPE ARCHITECTURE TEACHER [facility] PATIENT'S RACE WHITE OR 12/18/2020 11:50 AM LANDSCAPE ARCHITECTURE TEACHER [facility] ETHNICITY NONHISPANIC 12/18/2020 11:50 AM LANDSCAPE ARCHITECTURE TEACHER [facility] SOURCE (QST) NASOPHARYNGEAL SWAB 12/18/2020 11:50 AM LANDSCAPE ARCHITECTURE TEACHER [facility] NASOPHARYNGEAL SWAB / Unknown 12/18/2020 10:40 AM LANDSCAPE ARCHITECTURE TEACHER us Nic Escoto MD MICROBIOLOGY - GENERAL ORDER JONATHAN Final Result Performing Organization Address City/State/[facility] Co de Phone Number [facility] [address] [place] [address], [employer] [address] [address], documented in this encounter Visit Diagnoses Diagnosis Pre-op exam- Primary Preoperative examination, unspecified documented in this encounter Additional Health Concerns Infection Onset Date Last Indicated Resolved Time COVID-19 Rule Out 12/18/2020 12/18/2020 12/19/2020 9:16 PM LANDSCAPE ARCHITECTURE TEACHER documented as of this encounter Care Teams Time Analysis Clerk Relationship Specialty Start Date End Date Pablo Rios MD [address] [place] [address] PCP - General FAMILY PRACTICE 12/15/20 documented as of this encounter
--- OUTSIDE RECORDS SUMMARY | 2025-06-10 09:54 | XMS_ITS | Encounter Summary ---
Author Organization [facility] Address [address] [place] [address] Care Team Providers Care Mill Helper Name Role Phone aPblo Rios MD Primary Care Provider [phone] Encounter Details Date Type Department Care Team (Late st Contact Info) Description 12/10/[address] [address] Estefany Enriquez MD 3 [facility]. [place], [place] [phone] Social History Tobacco Use Types Packs/Day Years Used Date Smoking Tobacco: Never Assessed Comments Unknown Sex and Gender Information Value Date Recorded Sex Assigned at Not on file Legal Sex Female 4:34 PM CDT Gender Identity Not on file Sexual Orientation Not on file COVID-19 Exposure Response Date Recorded In the last month, have you been in contact with someone who was confirmed or suspected to have Coronavirus / COVID-19? No / Unsure 12/13/2020 1:43 PM TELEVISION DIRECTOR documented as of this encounter H&P Notes * Estefany Enriquez MD - 12/10/2020 2:45 PM CST Attending Provider: No att. providers found PCP: No primary care provider on file. Tessa Wilson is an 80-year-old female. Reason for Admission: surgery for CARLITO HPI: Stress incontinence and OAB No past medical history on file. HTN HPL GERD Depression Arthritis Allergies: Not on File Social History Tobacco Use ??? Smoking status: Not on file Substance Use Topics ??? Alcohol use: Not on file No past surgical history on file. Appy Hyst TKR No family history on file. HTN Lung cancner Travel Exposure: No current outpatient medications on file prior to visit. No current facility-administered medications on file prior to visit. There were no vitals taken for this visit. ROS Physical Exam Urethral hypermobility with CARLITO Assessment: Stress incontinence Plan: Urethral sling ESTEFANY ENRIQUEZ MD 12/10/2020 VISION DIRECTOR documented in this encounter Plan of Treatment Not on file documented as of this encounter Visit Diagnoses Not on filedocumented in this encounter Additional Health Concerns Infection Onset Date Last Indicated Resolved Time COVID-19 Rule Out 12/18/2020 12/18/2020 12/19/2020 9:16 PM TELEVISION DIRECTOR documented as of this encounter Care Teams Mill Helper Relationship Specialty Start Date End Date Pablo Rios MD [address] [place] [address] PCP - General FAMILY PRACTICE 12/15/20 documented as of this encounter
--- OUTSIDE RECORDS SUMMARY | 2025-06-10 09:54 | XMS_ITS | Clinical Summary ---
Author Organization [facility] Address [address] [facility] [place] [address] Care Team Providers Care Shuttle Preparation Supervisor Name Role Phone Rusty Suqires DO Primary Care Provider [phone] Source Comments [facility] (formerly [facility]),non-owned Affiliates and Associated Physician Practices is amultiple site organization consisting of ambulatory clinics and hospital sitesin [place], [place], [place] and [place]. This disclosure is being madepursuant to the Care Everywhere program and may not contain all information available regarding this patient. Last updated 18.[facility] Allergies No known active allergies Medications * [...] fluticasone propionate (Flonase) 50 MCG/ACT nasal spray [place] into each nostril once daily as needed [...] on file Legal Sex Female 6:21 AM STUDIO OWNER Gender Identity Not on file Sexual Orientation Not on file Last Filed Vital Signs Vital Sign Reading Time Taken Comments Blood Pressure 119/64 08/26/2023 3:32 PM STUDIO OWNER Pulse 81 08/26/2023 3:32 PM STUDIO OWNER Temperature - - Respiratory Rate - - Oxygen Saturation 95% 08/26/2023 3:32 PM STUDIO OWNER Inhaled Oxygen Concentration - - Weight 58.6 kg (129 lb 3.2 oz) 08/26/2023 3:32 P M STUDIO OWNER Height 157.5 cm (5' 2) 08/26/2023 3:32 PM STUDIO OWNER Body Mass Index 23.63 08/26/2023 3:32 PM STUDIO OWNER Plan of Treatment Health Maintenance Due Date [...] 01/10/2021, 12/13/2020 DEPRESSION SCREENING 10/20/2024 INFLUENZA VACCINE (#1) 2025 9, 06/16/2018, 07/20/2017 HEPATITIS B VACCINE Aged Out [...] complete this topic Insurance ANTHEM Care Teams Shuttle Preparation Supervisor Relationship Specialty Start Date End Date Rusty Squires DO [address] [place] [id number] PCP - General Family Medicine 08/26/23
--- OUTSIDE RECORDS SUMMARY | 2025-06-10 09:54 | XMS_ITS | Clinical Summary ---
Author Organization [facility] Address [address] [place] [address] Care Team Providers Care Implementation Architect Name Role Phone Pablo Rios MD Primary Care Provider [phone] Allergies No known active allergies Medications triamterene-hyd roCHLOROthiazid e 37.5-25 MG capsule Take 1 capsule by mouth daily. Active venlafaxine XR 75 MG 24 hr capsule Take 75 mg by mouth 3 (three) times a day. Active pantoprazole EC 20 MG tablet Take 20 mg by mouth daily. Active bumetanide 1 MG tablet Take 1 mg by mouth daily. Active Multiple Vitamin (MULTIVITAMIN ADULT OR) Take 1 tablet by mouth daily. Active vitamin D3, cholecalciferol , 1000 UNIT Tab tablet Take 1 tablet by mouth daily. Active ferrous sulfate, 65 mg elemental, 325 (65 FE) MG tablet Take 325 mg by mouth daily with breakfast. Active B Complex-C Tab tablet Take 1 tablet by mouth daily. Active acetaminophen CR (TYLENOL 8 HOUR ARTHRITIS PAIN) 650 MG Tab CR 8 hr tablet Take 1,300 mg by mouth 2 (two) times a day. Active celecoxib 200 MG capsule Take 200 mg by mouth daily. Active atorvastatin 10 MG tablet Take 10 mg by mouth nightly at bedtime. Active amLODIPine 10 MG tablet Take 10 mg by mouth nightly. Active wheat dextrin Tab tablet Take 1 tablet by mouth nightly. Active aspirin EC (ASPIRIN EC) 81 MG tablet Take 81 mg by mouth nightly. Active tamoxifen 20 MG tablet Take 20 mg by mouth nightly. Active levothyroxine 75 MCG tablet Take 75 mcg by mouth every morning. Active Family History Medical History Relation Comments Cancer Father lung Heart Disease Father Cancer Mother Hypertension Mother Cancer Son 1 leukemia Relation Status Comments Father Mother Son 1 Son 2 Alive Son 3 Alive Social History Tobacco Use Types Packs/Day Years [...] Sign Reading Time Taken Comments Blood Pressure 123/78 12/21/2020 2:15 PM OPTICAL GOODS WORKER Pulse 62 12/21/2020 2:15 PM OPTICAL GOODS WORKER Temperature 37.2 C (98.9 F) 12/21/2020 2:15 PM OPTICAL GOODS WORKER Respiratory Rate 16 12/21/2020 2:15 PM OPTICAL GOODS WORKER Oxygen Saturation 96% 12/21/2020 2:15 PM OPTICAL GOODS WORKER Inhaled Oxygen Concentration - - Weight 60.1 kg (132 lb 7.9 oz) 12/21/2020 9:15 A M OPTICAL GOODS WORKER Height 161.3 cm (5' 3.5) 12/13/2020 1:42 PM OPTICAL GOODS WORKER Body Mass Index 23.1 12/13/2020 1:42 PM OPTICAL GOODS WORKER Plan of Treatment Health Maintenance Due Date Last Done Comments DTaP, Tdap and Td Vaccines ( 1 - Tdap) 1959 Pneumococcal Vaccine: 50+ Ye ars (1 of 1 - PCV) 1989 RSV Immunization or 60+ Years (1 - 1-dose 75+ series) 2014 Zoster Vaccines (2 of 3) 09/14/2017 07/20/2017 COVID-19 Vaccine (2 - 2023-2 5 season) 2024 12/06/2020 Meningococcal B Vaccine Aged Out No l onger eligible based on patient's age to complete this topic Meningococcal Vaccine Aged Out No alisia janie eligible based on patient's age to complete this topic RSV Immunizations Under 20 Months Aged Out No longer eligible based on patient's age to complete this topic Medical Devices Implanted Type Area Core Piler Device Identifier Shelf Expiration Date Model / Serial / Lot Obtryx Ii System Halo Implanted:Qty: 1 on 12/21/2020 by Nic Escoto MD at [facility] N/A: Pelvis 07/02/2023 [id number] / / [id number] Insurance [facility] Care Teams Implementation Architect Relationship Specialty Start Date End Date Pablo Rios MD [address] [place] [address] PCP - General FAMILY PRACTICE 12/15/20
--- OUTSIDE RECORDS SUMMARY | 2025-06-10 09:54 | XMS_ITS | Clinical Summary ---
Author Hub Preferred Language Macanese Marital Status Synagogue Affiliation Unknown Race White Ethnic Group Not or Lati no Author Organization [facility] Address [address] [place] [address] Phone Care Team Providers Care Rubber Heel And Sole Press Tender Name Role Phone Amrita Fung FINANCIAL SERVICES EDUCATION CONSULTANT Unavailable [phone] Rusty Squires DO Primary Care Provider [phone] Allergies Active Allergy Reactions Criticality Noted Date Comments Oac-Iefzozqor-Bqwuhjfzolkff Unknown 04/27/20 18 Medications aspirin 81 mg [...] Thrombocytosis 07/10/2023 Coronary artery disease invo lving [place] coronary artery of [place] heart without angina pectoris 04/15/2022 Pulmonary hypertension [...] on file Legal Sex Female 10:43 AM BEHAVIOR 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
== END 2025-06-10 09:49 | disposition home or self-care (01) ==
LOC: ANHFOHIMG 09:49
PROVIDERS: PCP Family Medicine; Visit Provider Nurse Practitioner
DX: Z12.31 Encounter for screening mammogram for malignant neoplasm of breast (principal)
CPT/HCPCS: 77063; 77067

== ENCOUNTER 2025-07-19 11:09 | Outpatient (CLI) | payer BC, SELFPAY ==
--- OUTSIDE RECORDS SUMMARY | 2025-07-19 11:42 | XMS_ITS | Encounter Summary ---
Author Organization [facility] Address [address] [place] [address] Care Team Providers Care Technical Support Associate Name Role Phone Pablo Rios MD Primary Care Provider [phone] Encounter Details Date Type Department Care Team (Late st Contact Info) Description 12/10/[address] [facility] [address] Estefany Enriquez MD [address] [facility] [place], [place] [id number] Social History Tobacco Use Types Packs/Day Years [...] COVID-19? No / Unsure 12/13/2020 1:43 PM DEVELOPER TRADING SYSTEMS documented as of this encounter H&P Notes [...] Plan: Urethral sling ESTEFANY ENRIQUEZ MD 12/10/2020 LOPER TRADING SYSTEMS documented in this encounter Plan of Treatment Not on file documented as of this encounter Visit Diagnoses Not on filedocumented in this encounter Additional Health Concerns Infection Onset Date Last Indicated Resolved Time COVID-19 Rule Out 12/18/2020 12/18/2020 12/19/2020 9:16 PM DEVELOPER TRADING SYSTEMS documented as of this encounter Care Teams Technical Support Associate Relationship Specialty Start Date End Date Pablo Rios MD [address] [place] [address] PCP - General FAMILY PRACTICE 12/15/20 documented as of this encounter
--- OUTSIDE RECORDS SUMMARY | 2025-07-19 11:42 | XMS_ITS | Clinical Summary ---
Author Organization [facility] Address [address] [place] [address] Phone Care Team Providers Care Material Disposition Inspector Name Role Phone Amrita Fung FIBER PRODUCT CUTTING MACHINE OPERATOR Unavailable [phone] Rusty Squires DO Primary Care Provider [phone] Allergies Active Allergy Reactions Criticality Noted Date Comments Jbj-Qafspngps-Bcgerfnozgrmk Unknown 04/27/20 18 Medications aspirin 81 mg [...] Thrombocytosis 07/10/2023 Coronary artery disease invo lving ute coronary artery of ute heart without angina pectoris 04/15/2022 Pulmonary hypertension [...] on file 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
--- OUTSIDE RECORDS SUMMARY | 2025-07-19 11:42 | XMS_ITS | Clinical Summary ---
Author Organization [facility] Address [address] [facility] [place] [address] Care Team Providers Care Clinical Rehab Specialist Name Role Phone Rusty Squires DO Primary Care Provider [phone] Source Comments [facility],non-owned Affiliates and Associated Physician Practices is amultiple site organization consisting of ambulatory clinics and hospital sitesin [place], [place], [place] and [place]. This disclosure is being madepursuant to the Care Everywhere program and may not contain all information available regarding this patient. 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 Gender Identity Not on file Sexual Orientation Not on file Last Filed Vital Signs Vital Sign Reading Time Taken Comments Blood Pressure 119/64 08/26/2023 3:32 PM DOT COMPLIANCE SPECIALIST Pulse 81 08/26/2023 3:32 PM DOT COMPLIANCE SPECIALIST Temperature - - Respiratory Rate - - Oxygen Saturation 95% 08/26/2023 3:32 PM DOT COMPLIANCE SPECIALIST Inhaled Oxygen Concentration - - Weight 58.6 kg (129 lb 3.2 oz) 08/26/2023 3:32 P M DOT COMPLIANCE SPECIALIST Height 157.5 cm (5' 2) 08/26/2023 3:32 PM DOT COMPLIANCE SPECIALIST Body Mass Index 23.63 08/26/2023 3:32 PM DOT COMPLIANCE SPECIALIST Plan of Treatment Health Maintenance Due Date Last Done Comments BONE DENSITY TESTING 1939 DTAP/TDAP/TD VACCINES (1 - Tdap) 1958 Respiratory Syncytial Virus (RSV) Vaccine Pt: or over 60 yrs (1 - 1-dose 75+ series) 2014 ZOSTER VACCINE (2 of 3) 09/14/2017 07/20/2017 PNEUMOCOCCAL VACCINE 50+ (2 of 2 - PCV) 07/20/2018 07/20/2017 DEPRESSION SCREENING 10/20/2024 COVID-19 VACCINE (3 - 2024-2 6 season) 2025 01/10/2021, 12/13/2020 INFLUENZA VACCINE (#1) 2025 9, 06/16/2018, 07/20/2017 [...] complete this topic Insurance ANTHEM Care Teams Clinical Rehab Specialist Relationship Specialty Start Date End Date Rusty Squires DO [address] [place] [phone] PCP - General Family Medicine 08/26/23
--- OUTSIDE RECORDS SUMMARY | 2025-07-19 11:42 | XMS_ITS | Clinical Summary ---
Author Organization [facility] Address [address] [place] [address] Care Team Providers Care Storage Consultant Name Role Phone Pablo Rios MD Primary Care Provider [phone] Allergies No known active allergies Medications triamterene-hyd [...] Comments Blood Pressure 123/78 12/21/2020 2:15 PM QUARRY WORKER Pulse 62 12/21/2020 2:15 PM QUARRY WORKER Temperature 37.2 C (98.9 F) 12/21/2020 2:15 PM QUARRY WORKER Respiratory Rate 16 12/21/2020 2:15 PM QUARRY WORKER Oxygen Saturation 96% 12/21/2020 2:15 PM QUARRY WORKER Inhaled Oxygen Concentration - - Weight 60.1 kg (132 lb 7.9 oz) 12/21/2020 9:15 A M QUARRY WORKER Height 161.3 cm (5' 3.5) 12/13/2020 1:42 PM QUARRY WORKER Body Mass Index 23.1 12/13/2020 1:42 PM QUARRY WORKER Plan of Treatment Health Maintenance Due Date Last Done Comments DTaP, Tdap and Td Vaccines ( 1 - Tdap) 1959 Pneumococcal Vaccine: 50+ Ye ars (1 of 1 - PCV) 1989 RSV Immunization or 60+ Years (1 - 1-dose 75+ series) 2014 Zoster Vaccines (2 of 3) 09/14/2017 07/20/2017 COVID-19 Vaccine (2 - 2024-2 6 season) 2025 12/06/2020 Meningococcal B Vaccine Aged Out No l onger eligible based on patient's age to complete this topic Meningococcal Vaccine Aged Out No alisia janie eligible based on patient's age to complete this topic RSV Immunizations Under 20 Months Aged Out No longer eligible based on patient's age to complete this topic Medical Devices Implanted Type Area River Captain Device Identifier Shelf Expiration Date Model / Serial / Lot Obtryx Ii System Halo Implanted:Qty: 1 on 12/21/2020 by Nic Escoto MD at [facility] N/A: Pelvis 07/02/2023 [id number] / / [id number] Insurance [facility] Care Teams Storage Consultant Relationship Specialty Start Date End Date Pablo Rios MD [address] [place] [address] PCP - General FAMILY PRACTICE 12/15/20
--- OUTSIDE RECORDS SUMMARY | 2025-07-19 11:42 | XMS_ITS | Encounter Summary ---
Author Organization [facility] Address [address] [place] [address] Care Team Providers Care Pres[facility] Clergy Name Role Phone Pablo Rios MD Primary Care Provider [phone] Encounter Details Date Type Department Care Team (Late st Contact Info) Description 12/13/2020 Prep for Procedure [facility] Pre-Admission Testing [place], [place] [id number] Nic Escoto MD [address] [facility]. [place], [place] [id number] Social History Tobacco Use Types Packs/Day Years [...] COVID-19? No / Unsure 12/13/2020 1:43 PM FOREIGN LANGUAGES DEPARTMENT CHAIR documented as of this encounter Plan of Treatment Not on file documented as of this encounter Results * PRE-SURGICAL/PRE-PROCEDURE CORONAVIRUS (COVID 19) (12/18/2020 10:40 AM FOREIGN LANGUAGES DEPARTMENT CHAIR) CORONAVIRUS SARS COV 2 PCR (RESP) NOT DETECTED NOT DETECTED 12/19/2020 9:16 PM FOREIGN LANGUAGES DEPARTMENT CHAIR [employer] [facility] Comment: A Not Detected (negative) test result [...] providers and patients using the following websites: https://www.[employer].REALTIME.CO/home/Covid-19/HCP/[facility]/fact- sheet.html https://www.[employer].REALTIME.CO/home/Covid-19/Patients/ [employer]/fact-sheet.html This test has been authorized by the FDA under an Emergency Use Authorization (EUA) for use by authorized laboratories. Due to the current public health emergency, [facility] is receiving a high volume of samples [...] about COVID-19 can be found at the [employer] website: www.[employer].REALTIME.CO/Covid19. Test performed at [employer] [facility] [address] [place] [address] Director: LILIA JONES DO,MPH FIRST TEST YES 12/18/2020 11:50 AM [facility] EMPLOYED IN HEALTHCARE UNKNOWN 12/18/2020 11:50 AM [facility] SYMPTOMATIC DEFINED BY CDC NO 12/18/2020 11:50 AM FOREIGN LANGUAGES DEPARTMENT CHAIR [facility] DATE OF SYMPTOM ONSET NO 12/18/2020 12:19 PM FOREIGN LANGUAGES DEPARTMENT CHAIR [facility] HOSPITALIZATION STATUS NO 12/18/2020 11:50 AM FOREIGN LANGUAGES DEPARTMENT CHAIR [facility] PATIENT IN ICU NO 12/18/2020 11:50 AM FOREIGN LANGUAGES DEPARTMENT CHAIR [facility] RESIDENT OF CONGREGATE CARE UNKNOWN 12/18/2020 11:50 AM FOREIGN LANGUAGES DEPARTMENT CHAIR [facility] NO 12/18/2020 12:19 PM FOREIGN LANGUAGES DEPARTMENT CHAIR [facility] PATIENT'S RACE WHITE OR 12/18/2020 11:50 AM FOREIGN LANGUAGES DEPARTMENT CHAIR [facility] ETHNICITY NONHISPANIC 12/18/2020 11:50 AM FOREIGN LANGUAGES DEPARTMENT CHAIR [facility] SOURCE (QST) NASOPHARYNGEAL SWAB 12/18/2020 11:50 AM FOREIGN LANGUAGES DEPARTMENT CHAIR [facility] NASOPHARYNGEAL SWAB / Unknown 12/18/2020 10:40 AM FOREIGN LANGUAGES DEPARTMENT CHAIR us Nic Escoto MD MICROBIOLOGY - GENERAL ORDER JONATHAN Final Result Performing Organization Address City/State/[facility] Co de Phone Number [facility] [address] [place] [address], [employer] [address] [address], documented in this encounter Visit Diagnoses Diagnosis Pre-op exam- Primary Preoperative examination, unspecified documented in this encounter Additional Health Concerns Infection Onset Date Last Indicated Resolved Time COVID-19 Rule Out 12/18/2020 12/18/2020 12/19/2020 9:16 PM FOREIGN LANGUAGES DEPARTMENT CHAIR documented as of this encounter Care Teams [facility] Relationship Specialty Start Date End Date Pablo Rios MD [address] [place] [address] PCP - General FAMILY PRACTICE 12/15/20 documented as of this encounter
[2025-07-19 13:04] LABS: Hematocrit 38.2 % (37.0-47.0); Hemoglobin 11.8 g/dL (12.0-15.0); Mean Corpuscular HGB Conc 30.9 g/dl (32-36); Mean Corpuscular Hemoglobin 28.4 pg (26-34); Mean Corpuscular Volume 91.8 fl (80-100); Platelet Count Result 613 k/mm3 (150-375); Red Blood Count 4.16 M/mm3 (4.2-5.4); White Blood Count 7.0 K/mm3 (4.5-10.0)
[2025-07-19 13:09] LABS: Iron 66 ug/dL (37-170)
[2025-07-19 13:18] LABS: Alanine Aminotransferase 16 U/L (6-35); Albumin Level 4.0 g/dL (3.5-5.1); Alkaline Phosphatase 73 U/L (38-126); Anion Gap 7 mmol/L (4-12); Aspartate Amino Transferase 39 U/L (14-36); Bilirubin,Total 0.5 mg/dL (0.2-1.3); Blood Urea Nitrogen 43 mg/dL (7-17); Calcium 10.0 mg/dL (8.4-10.2); Carbon Dioxide 33 mmol/L (22-30); Chloride 101 mmol/L (98-107); Cholesterol 124 mg/dL (0-200); Estimated Glomerular Filt Rate 47; Glucose 101 mg/dL (65-110); HDL Direct 48 mg/dL; Potassium 3.3 mmol/L (3.4-5.0); Sodium 141 mmol/L (137-145); Total Protein 7.7 g/dL (6.3-8.2); Triglycerides 116 mg/dL (<150)
[2025-07-19 13:32] LABS: Free T4 Free Thyroxine 1.23 ng/dL (0.78-2.19)
[2025-07-19 13:51] LABS: Percent Iron Saturation 16 % (20-50)
[2025-07-19 13:55] LABS: Ferritin 190.00 ng/mL (11.1-264)
[2025-07-19 13:56] LABS: Thyroid Stimulating Hormone 0.359 uIU/mL (0.465-4.680)
[2025-07-19 14:31] LABS: Vitamin B12 967.0 pg/mL (239-931)
[2025-07-19 16:25] LABS: Hemoglobin A1C 6.3 % (<5.7)
== END 2025-07-19 11:10 | disposition home or self-care (01) ==
LOC: ANHGOSHLAB 11:09
PROVIDERS: PCP Family Medicine; Visit Provider Family Medicine
DX: E78.5 Hyperlipidemia, unspecified (principal); I10 Essential (primary) hypertension; E78.2 Mixed hyperlipidemia; E11.65 Type 2 diabetes mellitus with hyperglycemia; E55.9 Vitamin D deficiency, unspecified; E03.9 Hypothyroidism, unspecified; D64.9 Anemia, unspecified; Z79.899 Other long term (current) drug therapy
CPT/HCPCS: 36415; 80053; 80061; 82306; 82607; 82728; 82746; 83036; 83540; 83550; 84439; 84443; 85027

== ENCOUNTER 2025-08-24 14:24 | Outpatient (CLI) | payer BC, SELFPAY ==
--- OUTSIDE RECORDS SUMMARY | 2025-08-25 14:07 | XMS_ITS | Clinical Summary ---
Author Organization [facility] Address [address] [place] [address] Phone Care Team Providers Care Research Administrator Name Role Phone Amrita Fung NP Unavailable [phone] Vida Rodriguez DO Primary Care Provider [phone] Allergies Active Allergy Reactions Criticality Noted Date Comments Vac-Ezottklkx-Rpsmfzxxlxeqe Unknown 04/27/20 18 Medications aspirin 81 mg [...] 2 tablets by mouth daily 05/03/2024 Active mirabegron ER (MYRBETRIQ) 25 mg tablet extended release 24 hr Take 1 tablet (25 mg total) by mouth nightly at bedtime. 07/13/2025 Active Active Problems Problem Noted Date Diagnosed Date Thrombocytosis 07/10/2023 Coronary artery disease invo lving [place] coronary artery of [place] heart without angina pectoris 04/15/2022 Pulmonary hypertension 04/15/2022 Hyperlipidemia LDL goal <100 03/12/2021 Essential hypertension 03/12/2021 Abnormal stress test 03/12/2021 Hypersomnolence 03/12/2021 ROMELIA (obstructive sleep apnea) 03/12/2021 SOLANO (dyspnea on exertion) 03/12/2021 Chest pain 03/12/2021 Malignant neoplasm of upper- outer quadrant of left breast in female, estrogen receptor positive 10/22/2018 Encounters Date Type Department Care Team Description 07/29/2025 11:15 AM CDT Office Visit [facility] Cardiology [address] [facility] [address] [place] [address] Octavio Valentin MD Coronary artery disease involving [place] coronary artery of [place] heart without angina pectoris (Primary Dx); Hyperlipidemia LDL goal <100; Pulmonary hypertension (HCC); Essential hypertension; ROMELIA (obstructive sleep apnea) from Last 3 [...] on file 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 Gender Identity Not on file Sexual Orientation Not on file Last Filed Vital Signs Vital Sign Reading Time Taken Comments Blood Pressure 126/54 07/29/2025 10:18 AM CDT Pulse 80 07/29/2025 10:18 AM CDT Temperature 36.6 C (97.9 F) 07/15/2023 1:43 PM CDT Respiratory Rate 17 05/20/2023 3:18 PM CDT Oxygen Saturation 96% 07/29/2025 10:18 AM CDT Inhaled Oxygen Concentration - - Weight 55.8 kg (123 lb) 07/29/2025 10:18 AM CDT Height 160 cm (5' 3) 07/29/2025 10:18 AM CDT Body Mass Index 21.79 07/29/2025 10:18 AM CDT Plan of Treatment Health Maintenance Due Date Last Done Comments Depression Screening 1940 Fall Risk Assessment 1940 Osteoporosis Screening-Bone Density Scan 1939 DTaP/Tdap/Td Vaccine (1 - Tdap) 1950 Hepatitis B Screening 1957 Pneumococcal vaccine 65+ (1 of 1 - PCV) 1989 07/20/2017 Well Visit 65+ 2004 Zoster Vaccine (2 of 3) 09/14/2017 07/20/2017 Covid-19 Vaccine (3 - 2024- season) 2025, 12/13/2020 Influenza Vaccine (#1) 2025 9, 06/16/2018, 07/20/2017 Insurance [employer] [place] [employer] [place] [facility] FEDERAL MEDICARE Care Teams Research Administrator Relationship Specialty Start Date End Date Vida Rodriguez DO [facility] [address] [place] [address] PCP - General Family Medicine 07/29/25 Amrita Fung NP [address] [facility] [address] [facility] [address] [place] [address] Nurse Practitioner Medical Oncology 03/24/23
--- OUTSIDE RECORDS SUMMARY | 2025-08-25 14:07 | XMS_ITS | Clinical Summary ---
Author Organization [facility] Address [address] [place] [address] Care Team Providers Care Spool Salvager Name Role Phone Pablo Rios MD Primary Care Provider [phone] Allergies No known active allergies Medications triamterene-hyd [...] Comments Blood Pressure 123/78 12/21/2020 2:15 PM PHARMACEUTICAL SCIENTIST Pulse 62 12/21/2020 2:15 PM PHARMACEUTICAL SCIENTIST Temperature 37.2 C (98.9 F) 12/21/2020 2:15 PM PHARMACEUTICAL SCIENTIST Respiratory Rate 16 12/21/2020 2:15 PM PHARMACEUTICAL SCIENTIST Oxygen Saturation 96% 12/21/2020 2:15 PM PHARMACEUTICAL SCIENTIST Inhaled Oxygen Concentration - - Weight 60.1 kg (132 lb 7.9 oz) 12/21/2020 9:15 A M PHARMACEUTICAL SCIENTIST Height 161.3 cm (5' 3.5) 12/13/2020 1:42 PM PHARMACEUTICAL SCIENTIST Body Mass Index 23.1 12/13/2020 1:42 PM PHARMACEUTICAL SCIENTIST Plan of Treatment Health Maintenance Due Date Last Done Comments DTaP, Tdap and Td Vaccines ( 1 - Tdap) 1959 Pneumococcal Vaccine: 50+ Years (1 of 1 - PCV) 1989 RSV Immunization or 60+ Years (1 - 1-dose 75+ series) 2014 Zoster Vaccines (2 of 3) 09/14/2017 07/20/2017 COVID-19 Vaccine (2 - 2024-2 6 season) 2025 12/06/2020 Influenza Adult (#1) 2025 08/15/2019, 06/16/2018, 07/20/2017 Hepatitis A Vaccines Aged Out No long er eligible based on patient's age to complete this topic Meningococcal B Vaccine Aged Out No l onger eligible based on patient's age to complete this topic Meningococcal Vaccine Aged Out No alisia janie eligible based on patient's age to complete this topic RSV Immunizations Under 20 Months Aged Out No longer eligible b ased on patient's age to complete this topic Medical Devices Implanted Type Area Molder Foam Rubber Device Identifier Shelf Expiration Date Model / Serial / Lot Obtryx Ii System Halo Implanted:Qty: 1 on 12/21/2020 by Nic Escoto MD at [facility] N/A: Pelvis 07/02/2023 [id number] / / [id number] Insurance [facility] Care Teams Spool Salvager Relationship Specialty Start Date End Date Pablo Rios MD [address] [place] [address] PCP - General FAMILY PRACTICE 12/15/20
--- OUTSIDE RECORDS SUMMARY | 2025-08-25 14:07 | XMS_ITS | Encounter Summary ---
Author Organization [facility] Address [address] [place] [id number] Care Team Providers Care Echocardiograph Technician Name Role Phone Pablo Rios MD Primary Care Provider [phone] Encounter Details Date Type Department Care Team (Late st Contact Info) Description 12/13/2020 Prep for Procedure [facility] Pre-Admission Testing [place], [place] [id number] Nic Escoto MD [address] [facility]. [place], [place] [id number] Social History Tobacco Use Types Packs/Day Years [...] COVID-19? 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 Due to the current public health emergency, [employer] [facility] [employer] is receiving a high volume of samples [...] about COVID-19 can be found at the [employer] website: www.[employer]/Covid19. 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 [facility] DATE OF SYMPTOM ONSET NO 12/18/2020 12:19 PM SENIOR ORACLE APPLICATIONS DEVELOPER [facility] HOSPITALIZATION STATUS NO 12/18/2020 11:50 AM SENIOR ORACLE APPLICATIONS DEVELOPER [facility] PATIENT IN ICU NO 12/18/2020 11:50 AM SENIOR ORACLE APPLICATIONS DEVELOPER [facility] RESIDENT OF CONGREGATE CARE UNKNOWN 12/18/2020 11:50 AM SENIOR ORACLE APPLICATIONS DEVELOPER [facility] NO 12/18/2020 12:19 PM SENIOR ORACLE APPLICATIONS DEVELOPER [facility] PATIENT'S RACE WHITE OR 12/18/2020 11:50 AM SENIOR ORACLE APPLICATIONS DEVELOPER [facility] ETHNICITY NONHISPANIC 12/18/2020 11:50 AM SENIOR ORACLE APPLICATIONS DEVELOPER [facility] SOURCE (QST) NASOPHARYNGEAL SWAB 12/18/2020 11:50 AM SENIOR ORACLE APPLICATIONS DEVELOPER [facility] NASOPHARYNGEAL SWAB / Unknown 12/18/2020 10:40 AM SENIOR ORACLE APPLICATIONS DEVELOPER us Nic Escoto MD MICROBIOLOGY - GENERAL ORDER JONATHAN Final Result Performing Organization Address City/State/[facility] Co de Phone Number [facility] [address] [place] [address], [employer] [address] [address], documented in this encounter Visit Diagnoses Diagnosis Pre-op exam- Primary Preoperative examination, unspecified documented in this encounter Additional Health Concerns Infection Onset Date Last Indicated Resolved Time COVID-19 Rule Out 12/18/2020 12/18/2020 12/19/2020 9:16 PM SENIOR ORACLE 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
--- OUTSIDE RECORDS SUMMARY | 2025-08-25 14:07 | XMS_ITS | Encounter Summary ---
Author Organization [facility] Address [address] [place] [address] Care Team Providers Care Audio Visual Manager Name Role Phone Pablo Rios MD Primary Care Provider [phone] Encounter Details Date Type Department Care Team (Late st Contact Info) Description 12/10/[address] [facility] [address] Estefany Enriquez MD 3 [facility]. [place], [place] [id number] Social History Tobacco Use Types Packs/Day Years [...] COVID-19? 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 documented as of this encounter H&P Notes [...] Plan: Urethral sling ESTEFANY ENRIQUEZ MD 12/10/2020 TRONIC COMPONENT PROCESSOR documented in this encounter Plan of Treatment Not on file documented as of this encounter Visit Diagnoses Not on filedocumented in this encounter Additional Health Concerns Infection Onset Date Last Indicated Resolved Time COVID-19 Rule Out 12/18/2020 12/18/2020 12/19/2020 9:16 PM ELECTRONIC COMPONENT PROCESSOR documented as of this encounter Care Teams Audio Visual Manager Relationship Specialty Start Date End Date Pablo Rios MD [address] [place] [address] PCP - General FAMILY PRACTICE 12/15/20 documented as of this encounter
--- OUTSIDE RECORDS SUMMARY | 2025-08-25 14:07 | XMS_ITS | Clinical Summary ---
Author Organization [facility] Address [address] [place] [address] Care Team Providers Care Granulator Machine Operator Name Role Phone Rusty Squires DO Primary Care Provider [phone] Source Comments [facility],non-owned Affiliates and Associated Physician Practices is amultiple site organization consisting of ambulatory clinics and hospital sitesin [place], [place], [place] and [place]. This disclosure is being madepursuant to the Care Everywhere program and may not contain all information available regarding this patient. 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 Gender Identity Not on file Sexual Orientation Not on file Last Filed Vital Signs Vital Sign Reading Time Taken Comments Blood Pressure 119/64 08/26/2023 3:32 PM DEPUTY COUNTY CLERK Pulse 81 08/26/2023 3:32 PM DEPUTY COUNTY CLERK Temperature - - Respiratory Rate - - Oxygen Saturation 95% 08/26/2023 3:32 PM DEPUTY COUNTY CLERK Inhaled Oxygen Concentration - - Weight 58.6 kg (129 lb 3.2 oz) 08/26/2023 3:32 P M DEPUTY COUNTY CLERK Height 157.5 cm (5' 2) 08/26/2023 3:32 PM DEPUTY COUNTY CLERK Body Mass Index 23.63 08/26/2023 3:32 PM DEPUTY COUNTY CLERK Plan of Treatment Health Maintenance Due Date [...] complete this topic Insurance ANTHEM Care Teams Granulator Machine Operator Relationship Specialty Start Date End Date Rusty Squires DO [address] [place] [phone] PCP - General Family Medicine 08/26/23
--- NOTE | 2025-09-22 12:40 | WPDPFTINT ---
PFT Procedure Performed PFT Procedure Performed Plethysmography (Lung Vol) Diffusing Cap (DLCO) Flow Vol Loop Spirometry w/o Bronchodil PFT Interpretation DOS: 08/24/2025 REQUESTING: Wanda Prescott MD REASON FOR TESTING: Shortness of breath PULMONARY FUNCTION TESTS Results are reliable and reproducible. Repeatability of spirometry FEV1 maneuver is Grade A. GLI 2012 reference equations were used. Spirometry: The FEV1 is 1.13 L, 68%. The FVC is 1.71 L, 78%. The FEV1/FVC ratio is 66%. Lung volumes: The total lung capacity is 5.02 L, 106%. The functional residual capacity is 3.01 L, 110%. The residual volume is 2.81 L, 117%. The RV/TLC is 56%. Airway resistance is increased. Diffusion: DLCO is 9.7, 54%, mildly decreased. The DLCO/VA is 4.01, 97%, normal. Flow volume loop: The flow volume loop shows mild coving the expiratory limb. IMPRESSION: This study shows normal spirometry, no bronchodilator given, normal lung volumes, mild decrease in diffusion which corrects for alveolar volume. No prior studies for comparison. Wanda Prescott MD
--- NOTE | 2025-09-22 12:43 | WPDSIXMINUTE ---
Six Minute Walk Procedure Procedure Performed Pulmonary Stress Test (6 min walk) Six Minute Walk Six Minute Walk: DATE OF SERVICE: 08/24/2025 REQUESTING: Wanda Prescott MD REASON FOR TESTING: Dyspnea SIX MINUTE WALK This test was conducted per ATS guidelines. The initial saturation was 94%, and initial heart rate was 84 beats per minute. The patient walked without stopping, completing 182.8 m/600 ft. The saturation at the end of testing was 92%, and the heart rate was 106 beats per minute. The Paul score for fatigue and dyspnea was 2 initially, and 4 at the end of testing. Saturation was maintained between 92 and 94% during the test. IMPRESSION: This is a normal study. The patient did not require supplemental oxygen with exertion. Wanda Prescott MD
== END 2025-08-24 14:25 | disposition home or self-care (01) ==
LOC: ANHPFT 14:25
PROVIDERS: PCP Family Medicine; Visit Provider Internal Medicine Critical Care Medicine
DX: R06.02 Shortness of breath (principal)
CPT/HCPCS: 94060; 94618; 94726; 94729